=== PATIENT | male | born 1955 | race Caucasian/White ===

== ENCOUNTER 2017-06-07 12:44 | Emergency (ER) | payer OTHER ==
[2017-06-07 12:54] VITALS: BMI 39.0
[2017-06-07] MEDS ORDERED: DUONEB 0.5 MG/3 MG NEB ONE (13:22)
[2017-06-07 13:24] LABS: BASOPHILS # (AUTO) 0.1 X10^3/uL (0.0-0.1); BASOPHILS % (AUTO) 0.7 % (0.2-1.0); EOSINOPHILS # (AUTO) 0.4 x10^3/uL (0.0-0.2); EOSINOPHILS % (AUTO) 3.6 % (0.9-2.9); HEMATOCRIT 39.7 % (42.0-54.0); HEMOGLOBIN 13.5 g/dL (13.5-18.0); LYMPHOCYTES # (AUTO) 2.7 X10^3/uL (1.3-2.9); MEAN CORPUSCULAR HEMOGLOBIN 29.6 pg (27.0-34.0); MEAN CORPUSCULAR VOLUME 87.2 fL (80.0-100.0); MEAN PLATELET VOLUME 8.7 fL (7.4-11.0); MONOCYTES % (AUTO) 9.6 % (0.0-13.0); NEUTROPHILS # (AUTO) 6.5 x10^3/uL (2.2-4.8); NEUTROPHILS % (AUTO) 61.1 % (42.0-75.0); PLATELET COUNT 369 X10^3/uL (150.0-450.0); RED BLOOD COUNT 4.56 X10^6/uL (4.7-6.0); RED CELL DISTRIBUTION WIDTH 15.3 % (11.6-16.5); WHITE BLOOD COUNT 10.7 X10^3/uL (3.6-10.0)
[2017-06-07] MEDS ORDERED: DUONEB 0.5 MG/3 MG ONE (13:24)
--- NOTE | 2017-06-07 13:25 | DR.GENAD ---
HPI - PCP Primary Care Physician: LICO - Complaint/Symptoms Chief Complaint Doctors Comments: Patient reorts that he was at work started having tingling of hand and back of shoulders. He denies SOB, one pack per day cigarettes. No history of cardiopulmonary disease. He states that finished a course of antibiotics last week. Chief Complaint:: PATIENT STATED HE GOT WEAK AT WORK AND DIZZY AND HIS ARMS AND HANDS ARE TINGLING AND SHOULDER PAIN - Source History Provided: Patient - Mode of Arrival Mode of Arrival: Ambulatory - Timing Onset of Chief Complaint: 06/07/17 PMH - PMH Past Medical History: Yes Past Medical History: Arthritis, Hypertension Past Surgical History: No Surgical History: Tonsillectomy - Family History History of Family Medical Conditions: No - Social History Does patient currently use any type of tobacco product: Yes Have you used tobacco products in the last 12 months: Yes Type of Tobacco Use: Cigarettes How many years tobacco product used: 40 Does any household member use tobacco: Yes Alcohol Use: None Do you use any recreational Drugs:: No Lives With: Family Lives Where: Home - infectious screening In the last 2 months have you had wt loss of >10#?: NO Have you had fever, night sweats or hemotysis?: No Have you traveled outside the country in the last 6 months?: No Isolation: Standard ROS - Review of Systems Eyes: No Symptoms Reported ENTM: No Symptoms Reported Respiratoy: Dry Cough Cardiovascular: No Symptoms Reported Gastrointestinal/Abdominal: No Symptoms Reported Genitourinary: No Symptoms Reported Neurological: No Symptoms Reported Musculoskeletal: No Symptoms Reported Integumentary: No Symptoms Reported Hematologic/Lymphatic: No Symptoms Reported Endocrine: No Symptoms Reported Psychiatric: No Symptoms Reported All Other Systems: Reviewed and Negative PE - Vital Signs Vitals: Temperature 98.7 F Pulse Rate 86 Respiratory Rate 16 Blood Pressure 185/80 O2 Sat by Pulse Oximetry 100 - General Limitations: No Limitations General Appearance: Alert, In No Apparent Distress - Head Head Exam: Normal Inspection, Atraumatic - Eyes Eye exam: Normal Appearance, PERRL, EOMI, Scleral Icterus - ENT ENT Exam: Normal Exam External Ear Exam: Normal External Inspection TM/Canal Exam: Bilateral Normal Nose Exam: Normal Nose Exam Mouth Exam: Normal Inspection Throat Exam: Normal Inspection - Neck Neck Exam: Normal Inspection, Full ROM - Chest Chest Inspection: Normal Inspection - Respiratory Respiratory Exam: Other (bilateral expiratory wheeze) Respiratory Exam: Bilateral Clear to Auscultation - Cardiovascular Cardiovascular Exam: Regular Rate, Normal Rhythm - Extremities Extremities Exam: Normal Inspection, Full ROM - Back Back Exam: Normal Inspection - Neurologic Neurological Exam: Alert, Oriented X3, CN II-XII Intact - Psychiatric Psychiatric Exam: Normal Affect - Skin Skin Exam: Warm, Dry, Intact Course - Reevaluation 1st: Improved ROR - Labs Reviewed Laboratory Results Reviewed?: Yes (cardiacs negative) Result Diagrams: 06/07/17 13:15 06/07/17 13:15 Laboratory: WBC 10.7 X10^3/uL (3.6-10.0) H 06/07/17 13:15 RBC 4.56 X10^6/uL (4.7-6.0) L 06/07/17 13:15 Hgb 13.5 g/dL (13.5-18.0) 06/07/17 13:15 Hct 39.7 % (42.0-54.0) L 06/07/17 13:15 MCV 87.2 fL (80.0-100.0) 06/07/17 13:15 MCH 29.6 pg (27.0-34.0) 06/07/17 13:15 MCHC 34.0 g/dL (33.0-35.0) 06/07/17 13:15 RDW 15.3 % (11.6-16.5) 06/07/17 13:15 Plt Count 369 X10^3/uL (150.0-450.0) 06/07/17 13:15 MPV 8.7 fL (7.4-11.0) 06/07/17 13:15 Neut % 61.1 % (42.0-75.0) 06/07/17 13:15 Lymph % 25.0 % (21.0-51.0) 06/07/17 13:15 [place] % 9.6 % (0.0-13.0) 06/07/17 13:15 Eos % 3.6 % (0.9-2.9) H 06/07/17 13:15 Baso % 0.7 % (0.2-1.0) 06/07/17 13:15 Neut # 6.5 x10^3/uL (2.2-4.8) H 06/07/17 13:15 Lymph # 2.7 X10^3/uL (1.3-2.9) 06/07/17 13:15 [place] # 1.0 x10^3/uL (0.3-0.8) H 06/07/17 13:15 Eos # 0.4 x10^3/uL (0.0-0.2) H 06/07/17 13:15 Baso # 0.1 X10^3/uL (0.0-0.1) 06/07/17 13:15 Absolute Nucleated RBC 0.0 /100WBC 06/07/17 13:15 INR Target Range - 06/07/17 13:15 INR 1.26 (0.8-1.3) 06/07/17 13:15 PTT 28.9 SECONDS (22.9-36.5) 06/07/17 13:15 PTT Comment - 06/07/17 13:15 Sodium 140 mmol/L (136-145) 06/07/17 13:15 Corrected Sodium 141 mmol/L (136-145) 06/07/17 13:15 Potassium 3.9 mmol/L (3.5-5.1) 06/07/17 13:15 Chloride 104 mmol/L (98-107) 06/07/17 13:15 Carbon Dioxide 25.4 mmol/L (21-32) 06/07/17 13:15 BUN 30 mg/dL (7-18) H 06/07/17 13:15 Creatinine 2.48 mg/dL (0.70-1.30) H 06/07/17 13:15 Est GFR (MDRD) Af Amer 34 (>60) L 06/07/17 13:15 Est GFR (MDRD) Non-Af 28 (>60) L 06/07/17 13:15 Glucose 128 mg/dL (65-99) H 06/07/17 13:15 Calcium 8.5 mg/dL (8.5-10.1) 06/07/17 13:15 Corrected Calcium TNP 06/07/17 13:15 Magnesium 2.4 mg/dL (1.7-2.9) 06/07/17 13:15 Total Bilirubin 0.60 mg/dL (0.2-1.0) 06/07/17 13:15 AST 20 Units/L (15-37) 06/07/17 13:15 ALT 17 Units/L (12-78) 06/07/17 13:15 Alkaline Phosphatase 84 Units/L (46-116) 06/07/17 13:15 Creatine Kinase 137 Units/L (39-308) 06/07/17 13:15 CK-MB (CK-2) 1.2 ng/mL (0-4.0) 06/07/17 13:15 CK/CKMB % Calc 0.9 % (<4) 06/07/17 13:15 Troponin I < 0.02 ng/mL (0-1.5) 06/07/17 13:15 Total Protein 6.8 g/dL (6.4-8.2) 06/07/17 13:15 Albumin 3.4 g/dL (3.4-5.0) 06/07/17 13:15 Globulin 3.4 g/dL (2.5-4.5) 06/07/17 13:15 Albumin/Globulin Ratio 1.0 Ratio (1.1-2.1) L 06/07/17 13:15 - XRAY XRAY Interpreted by: Radiologist (Cervical Spine: ....There is multilevel sondylosis and degenerative disc disease as well as facet arthropathy throughout the cervical sine. The visualized odontoid process appears intact. No evidence of acute fracture or subluxation. The visuazlized lung apices appear clear.) - Diagnosis Discharge Problem: Multileved cervical DJD, Non-cardiac chest pain, Prerenal azotemia COPD (chronic obstructive pulmonary disease) Qualifiers: COPD type: unspecified COPD Qualified Code(s): J44.9 - Chronic obstructive pulmonary disease, unspecified - Discharge Plan Condition: Stable - Follow ups/Referrals Follow ups/Referrals: KARLENE BARFIELD [Primary Care Provider] - 3 days - Instructions
[2017-06-07 13:38] LABS: ALANINE AMINOTRANSFERASE 17 Units/L (12-78); ALBUMIN 3.4 g/dL (3.4-5.0); ALKALINE PHOSPHATASE 84 Units/L (46-116); ASPARTATE AMINO TRANSFERASE 20 Units/L (15-37); BLOOD UREA NITROGEN 30 mg/dL (7-18); CALCIUM 8.5 mg/dL (8.5-10.1); CARBON DIOXIDE 25.4 mmol/L (21-32); CHLORIDE 104 mmol/L (98-107); COR NA(FOR HYPERGLY) 141 mmol/L (136-145); CREATININE 2.48 mg/dL (0.70-1.30); MAGNESIUM 2.4 mg/dL (1.7-2.9); SODIUM 140 mmol/L (136-145); TOTAL PROTEIN 6.8 g/dL (6.4-8.2); eGFR BLACK RACES 34 (>60); eGFR NON BLACK RACES 28 (>60)
--- NOTE | 2017-06-07 13:40 | RAD ---
HISTORY: 61-year-old male with numbness and tingling in his hand. Study: Frontal view of the chest. Comparison: None. Findings: Study is limited secondary to patient body habitus and extensive quantum mottle. The trachea is midline. The cardiac silhouette is borderline enlarged with prominent perihilar lung markings and interstitium. The lungs are clear without focal consolidation, effusion or pneumothorax . Soft tissues are unremarkable. Osseous structures are unremarkable. IMPRESSION: 1. Borderline cardiomegaly with prominence of the interstitium and perihilar lung markings, consiste nt with COPD. Reported By:
[2017-06-07 13:55] LABS: CKMB % 0.9 % (<4); CREATINE KINASE 137 Units/L (39-308); CREATINE KINASE MB 1.2 ng/mL (0-4.0); TROPONIN I < 0.02 ng/mL (0-1.5)
[2017-06-07] MEDS ORDERED: NS 1000 ML 1,000 ML IV ONE (14:10)
[2017-06-07] MEDS ORDERED: NS 1000 ML 1,000 ML ONE (14:25)
[2017-06-07] MEDS ORDERED: K-DUR TAB 20 MEQ PO ONE (15:37)
--- NOTE | 2017-06-07 16:08 | RAD ---
HISTORY: Bilateral upper extremity tingling Study: Three-view cervical spine Comparison: None Findings: Normal cervical alignment. C7 is not well seen on the lateral view. Vertebral body heights appear pre served. Prevertebral soft tissues are normal. There is multilevel spondylosis and degenerative disc d isease as well as facet arthropathy throughout the cervical spine. The visualized odontoid process ap pears intact. No evidence of acute fracture or subluxation. The visualized lung apices appear clear. IMPRESSION: 1. Multilevel cervical degenerative changes. Reported By:
[2017-06-07 16:50] VITALS: BP 106/71
== END 2017-06-07 16:44 | disposition home or self-care (01) ==
LOC: ER 12:44
DX: J44.9 Chronic obstructive pulmonary disease, unspecified (principal); R07.89 Other chest pain; R79.89 Other specified abnormal findings of blood chemistry; M50.30 Other cervical disc degeneration, unspecified cervical region; I51.7 Cardiomegaly; Z72.0 Tobacco use
CPT/HCPCS: 36415; 71010; 72040; 80053; 82550; 82553; 83735; 84484; 85025; 85610; 85730; 93005; 93010; 96365; 96367; 99283; A4216; A4222; J7620

== ENCOUNTER 2017-06-16 10:50 | Observation (INO) | payer OTHER ==
[2017-06-16] MEDS ORDERED: ZOFRAN INJ 4 MG VIAL ONE ×2 (11:08→13:28)
[2017-06-16] MEDS ORDERED: NS 1000 ML 1,000 ML ONE (11:08)
[2017-06-16] MEDS ORDERED: NS 1000 ML 1,000 ML IV ONE (11:19)
[2017-06-16] MEDS ORDERED: ZOFRAN INJ 4 MG VIAL IVP ONE ×2 (11:19→13:28)
--- NOTE | 2017-06-16 11:30 | DR.N/VMALE ---
HPI - Time Seen Time seen: 11:20 - Primary Care Physician Primary Care Physician: LICO - HPI Comment HPI Comment: PAIN WORSE TODAY. HAVE GALL STONES. NO FEVER. NOT HOLDING DOWN FLUID. - Complaints Chief Complaint Doctors Comments: UPPER ABDOMINAL PAIN TIME 3 DAYS WITH N/V. Chief Complaint:: PT. C/O NAUSEA/VOMITING AND ABDOMINAL PAIN SINCE SATURDAY. PT. STATES HE IS UNABLE TO KEEP ANYTHING DOWN. - Reviewed Nurses Notes Reviewed: Yes - Source History Provided: Patient, Family Member - Mode of Arrival Mode of Arrival: Ambulatory - Timing Onset of Chief Complaint: 06/14/17 - Context Onset: Spontaneous Recent: None History of: None - Quality Quality: Bilious - Associated Signs and Symptoms Abdominal Pain Quality: Cramping, Sharp Abdominal Pain Location: Epigastric, RUQ, LUQ Symptoms: Abdominal Pain PMH - PMH Past Medical History: Yes Past Medical History: Arthritis, Hypertension Past Surgical History: Yes Surgical History: Tonsillectomy - Family History History of Family Medical Conditions: No - Social History Does patient currently use any type of tobacco product: Yes Have you used tobacco products in the last 12 months: Yes Type of Tobacco Use: Cigarettes Does any household member use tobacco: No Alcohol Use: None Do you use any recreational Drugs:: No Lives With: Significant Other Lives Where: Home - infectious screening In the last 2 months have you had wt loss of >10#?: NO Have you had fever, night sweats or hemotysis?: No Have you traveled outside the country in the last 6 months?: No Isolation: Standard ROS - Review of Systems Constitutional: Weakness, Fatigue, Loss of Appetite. negative: Chills, Diaphoresis, Fever Eyes: No Symptoms Reported ENTM: No Symptoms Reported Respiratoy: No Symptoms Reported Cardiovascular: No Symptoms Reported Gastrointestinal/Abdominal: Abdominal Pain, Diarrhea Neurological: Anxiety Musculoskeletal: No Symptoms Reported Integumentary: No Symptoms Reported, Change in Hair/Nails Psychiatric: No Symptoms Reported All Other Systems: Reviewed and Negative PE - Vital Signs Vitals: Blood Pressure [Left Arm] 188/86 Blood Pressure [Right Arm] 106/71 Blood Pressure 106/71 - General Limitations: No Limitations General Appearance: Alert - Head Head Exam: Normal Inspection - Eyes Eye exam: Normal Appearance - ENT ENT Exam: Normal External Ear Exam - Chest Chest Inspection: Symmetric Chest Wall Rise - Respiratory Respiratory Exam: Normal Lung Sounds Bilat Respiratory Exam: Bilateral Clear to Auscultation - Cardiovascular Cardiovascular Exam: Regular Rate, Normal Rhythm, Irregular Rhythm - Abdominal Exam Abdominal Exam: Normal Bowel Sounds, Soft, Distention Abdominal Tenderness: RUQ, LUQ, Epigastrium - Rectal Rectal Exam: Deferred - Exam: Male: Deferred - Extremities Extremities Exam: Normal Inspection - Back Back Exam: Paraspinal Tenderness - Neurologic Neurological Exam: Alert, Oriented X3 - Psychiatric Psychiatric Exam: Normal Affect, Normal Mood - Skin Skin Exam: Normal Color MDM - Additional Information Obtained Additional Information Obtained From: Family - Differential Diagnosis Differential Diagnosis: Considerations may Include:: Bowel Obstruction, Cholecystitis, Gastritis, Gastroenteritis, Inflammatory BD, Pancreatitis, Urinary Tract Infection, Urolithiasis Course - Treatment Treatment: SEE ORDERS - Consultation Consultation Comments: DISCUSS PATIENT WITH DR. OVIEDO. HE WILL ADMIT PATIENT. - Education/Counseling Education/Counseling: Patient, Education Educated On: Treatment, Diagnosis ROR - Labs Reviewed Laboratory Results Reviewed?: Yes Result Diagrams: 06/17/17 03:35 06/17/17 03:35 Laboratory: WBC 16.8 X10^3/uL (3.6-10.0) H 06/16/17 11:30 RBC 5.32 X10^6/uL (4.7-6.0) 06/16/17 11:30 Hgb 15.9 g/dL (13.5-18.0) 06/16/17 11:30 Hct 46.1 % (42.0-54.0) 06/16/17 11:30 MCV 86.7 fL (80.0-100.0) 06/16/17 11:30 MCH 29.8 pg (27.0-34.0) 06/16/17 11:30 MCHC 34.4 g/dL (33.0-35.0) 06/16/17 11:30 RDW 15.3 % (11.6-16.5) 06/16/17 11:30 Plt Count 370 X10^3/uL (150.0-450.0) 06/16/17 11:30 MPV 9.9 fL (7.4-11.0) 06/16/17 11:30 Neut % 77.4 % (42.0-75.0) H 06/16/17 11:30 Lymph % 10.7 % (21.0-51.0) L 06/16/17 11:30 [place] % 10.5 % (0.0-13.0) 06/16/17 11:30 Eos % 0.5 % (0.9-2.9) L 06/16/17 11:30 Baso % 0.9 % (0.2-1.0) 06/16/17 11:30 Neut # 13.0 x10^3/uL (2.2-4.8) H 06/16/17 11:30 Lymph # 1.8 X10^3/uL (1.3-2.9) 06/16/17 11:30 [place] # 1.8 x10^3/uL (0.3-0.8) H 06/16/17 11:30 Eos # 0.1 x10^3/uL (0.0-0.2) 06/16/17 11:30 Baso # 0.1 X10^3/uL (0.0-0.1) 06/16/17 11:30 Absolute Nucleated RBC 0.0 /100WBC 06/16/17 11:30 Sodium 133 mmol/L (136-145) L 06/16/17 11:30 Corrected Sodium 133 mmol/L (136-145) L 06/16/17 11:30 Potassium 4.2 mmol/L (3.5-5.1) 06/16/17 11:30 Chloride 100 mmol/L (98-107) 06/16/17 11:30 Carbon Dioxide 27.6 mmol/L (21-32) 06/16/17 11:30 BUN 16 mg/dL (7-18) 06/16/17 11:30 Creatinine 1.71 mg/dL (0.70-1.30) H 06/16/17 11:30 Est GFR (MDRD) Af Amer 52 (>60) L 06/16/17 11:30 Est GFR (MDRD) Non-Af 43 (>60) L 06/16/17 11:30 Glucose 111 mg/dL (65-99) H 06/16/17 11:30 Calcium 8.8 mg/dL (8.5-10.1) 06/16/17 11:30 Corrected Calcium 9.5 mg/dL (8.5-10.1) 06/16/17 11:30 Total Bilirubin 0.50 mg/dL (0.2-1.0) 06/16/17 11:30 AST 18 Units/L (15-37) 06/16/17 11:30 ALT 19 Units/L (12-78) 06/16/17 11:30 Alkaline Phosphatase 80 Units/L (46-116) 06/16/17 11:30 Creatine Kinase 47 Units/L (39-308) 06/16/17 11:30 CK-MB (CK-2) < 1.0 ng/mL (0-4.0) 06/16/17 11:30 CK/CKMB % Calc 2.1 % (<4) 06/16/17 11:30 Troponin I < 0.02 ng/mL (0-1.5) 06/16/17 11:30 Total Protein 6.9 g/dL (6.4-8.2) 06/16/17 11:30 Albumin 3.1 g/dL (3.4-5.0) L 06/16/17 11:30 Globulin 3.8 g/dL (2.5-4.5) 06/16/17 11:30 Albumin/Globulin Ratio 0.8 Ratio (1.1-2.1) L 06/16/17 11:30 Amylase 27 Units/L (25-115) 06/16/17 11:30 Lipase 199 Units/L (73-393) 06/16/17 11:30 Specimen Type Clean catch urine 06/16/17 13:07 Urine Color Yellow (YELLOW) 06/16/17 13:07 Urine Appearance Cloudy (CLEAR) 06/16/17 13:07 Urine pH 5.0 (5.0 - 8.0) 06/16/17 13:07 Ur Specific [place] 1.020 (1.000-1.030) 06/16/17 13:07 Urine Protein 2+ (NEGATIVE) 06/16/17 13:07 Urine Glucose (UA) Negative (NEGATIVE) 06/16/17 13:07 Urine Ketones 1+ (NEGATIVE) 06/16/17 13:07 Urine Occult Blood 3+ (NEGATIVE) 06/16/17 13:07 Urine Nitrite Positive (NEGATIVE) 06/16/17 13:07 Urine Bilirubin Negative (NEGATIVE) 06/16/17 13:07 Urine Urobilinogen Normal (NORMAL) 06/16/17 13:07 Ur Leukocyte Esterase 3+ (NEGATIVE) 06/16/17 13:07 Urine RBC 01 - 04 /HPF (NEGATIVE) 06/16/17 13:07 Urine WBC Tntc with clumps /HPF (NEGATIVE) 06/16/17 13:07 Ur Squamous Epith Cells Rare /HPF (NEGATIVE) 06/16/17 13:07 Amorphous Sediment Trace /HPF (NEGATIVE) 06/16/17 13:07 Urine Bacteria 4+ /HPF (NEGATIVE) 06/16/17 13:07 Hyaline Casts Rare /LPF (NEGATIVE) 06/16/17 13:07 Ur Culture Indicated? Yes/culture set up 06/16/17 13:07 H. pylori IgG Antibody Positive (NEGATIVE) A 06/16/17 11:30 - XRAY XRAY Findings: REPORT DISCUSS WITH PATIENT AND HIS . - EKG Rhythm: NSR (EKG NOTED) - Diagnosis Discharge Problem: Abdominal pain Qualifiers: Abdominal location: upper abdomen, unspecified Qualified Code(s): R10.10 - Upper abdominal pain, unspecified Cholelithiasis Qualifiers: Cholelithiasis location: gallbladder Cholecystitis presence: without cholecystitis Biliary obstruction: without biliary obstruction Qualified Code(s) : K80.20 - Calculus of gallbladder without cholecystitis without obstruction UTI (urinary tract infection) Qualifiers: Urinary tract infection type: site unspecified Hematuria presence: without hematuria Qualified Code(s): N39.0 - Urinary tract infection, site not specified - Discharge Plan Disposition: ADMITTED INPATIENT Condition: Stable - Follow ups/Referrals - Instructions
[2017-06-16] MEDS ORDERED: PEPCID 20 MG IV PREMIX* 20 MG/50 ML BAG IV ONE ×2 (11:31→11:33)
[2017-06-16] MEDS ORDERED: DEMEROL INJ IVP ONE ×2 (11:31→13:47)
[2017-06-16] MEDS ORDERED: DEMEROL INJ ONE ×2 (11:34→13:49)
[2017-06-16 11:46] LABS: BASOPHILS # (AUTO) 0.1 X10^3/uL (0.0-0.1); BASOPHILS % (AUTO) 0.9 % (0.2-1.0); EOSINOPHILS # (AUTO) 0.1 x10^3/uL (0.0-0.2); EOSINOPHILS % (AUTO) 0.5 % (0.9-2.9); HEMATOCRIT 46.1 % (42.0-54.0); HEMOGLOBIN 15.9 g/dL (13.5-18.0); LYMPHOCYTES # (AUTO) 1.8 X10^3/uL (1.3-2.9); LYMPHOCYTES % (AUTO) 10.7 % (21.0-51.0); MEAN CORPUSCULAR HEMOGLOBIN 29.8 pg (27.0-34.0); MEAN CORPUSCULAR HGB CONC 34.4 g/dL (33.0-35.0); MEAN CORPUSCULAR VOLUME 86.7 fL (80.0-100.0); MEAN PLATELET VOLUME 9.9 fL (7.4-11.0); MONOCYTES # (AUTO) 1.8 x10^3/uL (0.3-0.8); MONOCYTES % (AUTO) 10.5 % (0.0-13.0); NEUTROPHILS % (AUTO) 77.4 % (42.0-75.0); PLATELET COUNT 370 X10^3/uL (150.0-450.0); RED BLOOD COUNT 5.32 X10^6/uL (4.7-6.0); RED CELL DISTRIBUTION WIDTH 15.3 % (11.6-16.5); WHITE BLOOD COUNT 16.8 X10^3/uL (3.6-10.0)
[2017-06-16 12:24] LABS: BLOOD UREA NITROGEN 16 mg/dL (7-18); CALCIUM 8.8 mg/dL (8.5-10.1); CARBON DIOXIDE 27.6 mmol/L (21-32); CHLORIDE 100 mmol/L (98-107); COR NA(FOR HYPERGLY) 133 mmol/L (136-145); CREATININE 1.71 mg/dL (0.70-1.30); SODIUM 133 mmol/L (136-145); TROPONIN I < 0.02 ng/mL (0-1.5); eGFR BLACK RACES 52 (>60); eGFR NON BLACK RACES 43 (>60)
--- NOTE | 2017-06-16 12:26 | CT ---
CT ABDOMEN AND PELVIS WITHOUT CONTRAST CLINICAL HISTORY: 61-year-old male with nausea, vomiting and abdominal pain. COMPARISON: None. TECHNIQUE: Multiple contiguous computed tomographic axial images of the abdomen and pelvis were obtai guido without the use of oral or intravenous contrast. Images were reformatted in the coronal and sagit bill planes. FINDINGS: The lung bases demonstrate no evidence of focal air-space opacification, pleural effusion, pneumothor ax, or suspicious pulmonary nodules. The imaged inferior mediastinum and heart are normal in appeara nce without evidence of pericardial effusion. The liver, pancreas, and spleen are within normal limits for noncontrast imaging. Cholelithiasis with out CT evidence of cholecystitis. The adrenal glands and kidneys are normal bilaterally. There are no nephroureteral stones or perineph natasha fluid collections. There is no evidence of hydroureteronephrosis and the ureters run in an unobst ructed course to a well distended urinary bladder. The prostate, seminal vesicles, and external genitalia are within normal limits. The appendix is normal in appearance. The bowel is without obstruction or inflammation and there is no free fluid or free air within the peritoneal cavity. There are no pathologically enlarged lymph n odes in the abdomen or pelvis. Severe calcific atherosclerotic disease of the aorta and its branches. Soft tissues are normal. The osseous structures are intact without fracture or malalignment. Multilevel degenerative change of the imaged spine. IMPRESSION: 1. Cholelithiasis without CT evidence of cholecystitis. 2. Normal appendix. 3. No acute intra-abdominal or intrapelvic process. Reported By:
[2017-06-16 12:28] LABS: ALANINE AMINOTRANSFERASE 19 Units/L (12-78); ALBUMIN 3.1 g/dL (3.4-5.0); ALKALINE PHOSPHATASE 80 Units/L (46-116); AMYLASE 27 Units/L (25-115); ASPARTATE AMINO TRANSFERASE 18 Units/L (15-37); COR CA(FOR HYPOALB) 9.5 mg/dL (8.5-10.1); CREATINE KINASE 47 Units/L (39-308); CREATINE KINASE MB < 1.0 ng/mL (0-4.0); LIPASE 199 Units/L (73-393); TOTAL PROTEIN 6.9 g/dL (6.4-8.2)
[2017-06-16 12:33] LABS: CKMB % 2.1 % (<4)
[2017-06-16 13:18] LABS: BILIRUBIN,URINE NEGATIVE (NEGATIVE); BLOOD/HEMOGLOBIN,URINE 3+ (NEGATIVE); GLUCOSE, URINE NEGATIVE (NEGATIVE); KETONES,URINE 1+ (NEGATIVE); LEUKOCYTE ESTERASE ,URINE 3+ (NEGATIVE); NITRITES,URINE POSITIVE (NEGATIVE); PROTEIN,URINE 2+ (NEGATIVE); UROBILINOGEN,URINE NORMAL (NORMAL)
[2017-06-16 13:36] LABS: APPEARANCE,URINE CLOUDY (CLEAR); COLOR,URINE YELLOW (YELLOW)
[2017-06-16 13:41] LABS: AMORPHOUS SEDIMENT,UR TRACE /HPF (NEGATIVE); BACTERIA,URINE 4+ /HPF (NEGATIVE); HYALINE CASTS, URINE RARE /LPF (NEGATIVE); SQUAMOUS EPITHELIAL CELL,UR RARE /HPF (NEGATIVE)
[2017-06-16] MEDS ORDERED: ROCEPHIN VIAL 1 GM 1 GM in NS 50 ML IV + SPIKE MINIBAG* 50 ML IV ONE (13:47)
[2017-06-16] MEDS ORDERED: ROCEPHIN 1 GM IV PREMIX 50 ML IV ONE (13:49)
[2017-06-16] MEDS: NS 1000 ML 1,000 ML IV SCH ×2 (13:56→21:00)
[2017-06-16] MEDS ORDERED: ZOFRAN INJ 4 MG VIAL IVP PRN (14:57)
[2017-06-16] MEDS ORDERED: TYLENOL 325 MG TAB PO PRN (14:57)
[2017-06-16 16:22] VITALS: BMI 37.5
[2017-06-16] MEDS ORDERED: FLUVIRIN IM ONE ×2 (16:22→21:14)
--- NOTE | 2017-06-16 16:47 | DR.CONSULT ---
Consult - Consultation for Day of: Date: 06/16/17 - Chief Complaint Chief Complaint: Nausea and vomiting x 2 days. - Allergies Allergies/Adverse Reactions: Allergies Allergy/AdvReac Type Severity Reaction Status Date / Time promethazine [From Phenergan] Allergy Verified 06/16/17 10:53 - History of Present Illness History of Present Illness: The luh is a 61 year old male who presented to the ER with persistent nausea and vomiting x 48 hrs. The patient was able to tolerate liquids but reports symptoms re-occur after PO intake. (-) f/c. (-) diarrhea. (-) sick contacts. Mild constipation but BM today. He denies any abdominal pain but admits to dyspepsia. Work-up in the ER deomnstrates (+) UA with leukocytosis. (+) H.pylori. CT shows cholelithiasis without evidence of cholecystitis. The patient was taking an extended prednisone pack but has not for several days due to N/V. The patient denies dysuria but admits to increased frequency. No know prostate problems. - Past Medical History Past Medical History: Arthritis, Hypertension - Past Surgical History Surgical History: Tonsillectomy - Family History Family Medical History: Diabetes Mellitus, Cancer, Hypertension - Social History Does patient currently use any type of tobacco product: Yes Have you used tobacco products in the last 12 months: Yes Type of Tobacco Use: Cigarettes Does any household member use tobacco: No Alcohol Use: None Drug Use: None - Review of Systems Constitutional: No Symptoms Reported Eyes: No Symptoms Reported ENT: No Symptoms Reported Respiratory: No Symptoms Reported Cardiovascular: No Symptoms Reported Gastrointestinal: Nausea, Vomiting Genitourinary: Frequency Musculoskeletal: No Symptoms Reported Skin: No Symptoms Reported Neurological: No Symptoms Reported - Physical Exam Vital Signs: Temperature 98.7 F Pulse Rate [Left Brachial] 66 Pulse Rate 80 Respiratory Rate 18 Blood Pressure [Left Arm] 139/83 Blood Pressure [Right Arm] 106/71 Blood Pressure 200/102 O2 Sat by Pulse Oximetry 98 Oriented: Normal Eyes: Normal Ear: Normal Respiratory: Clear Throughout Cardiovascular: Normal Auscultation: Bowel Sounds: Normal Palpation: Normal Tenderness: Normal, Other ((-) Encinas's sign.) Skin: Normal Musculoskeletal: Normal Psychiatric: Normal Mood Description: Calm Affect: Normal Speech Pattern: Clear - Plan Plan: 61 year old male with N/V/dyspepsia. 1. UTI. Likely source of symptoms. Abx. started by primary team. Await cultures. 2. Cholelithiasis. Difficult to tell if symptomatic at this time due to UTI. The patient denies RUQ pain or N/V after meals or fatty food intake. CT reviewed. Ultrasound pending. On exam, NTTP RUQ. Monitor. 3. H.pylori. Currently on PPI. Recent steroid use. Previously on NSAIDs. No epigastric pain. Continue meds. Elective treatment as outpatient.
[2017-06-16] MEDS: PROTONIX INJ 40 MG VIAL 80 MG in NS 100 ML IV 80 ML IV SCH (17:32)
[2017-06-16] MEDS: NICOTINE PATCH TD SCH (19:29)
[2017-06-16] MEDS: MORPHINE SULFATE INJ 2 MG INJ IVP PRN (21:55)
[2017-06-16] MEDS: REQUIP PO SCH (23:46)
[2017-06-17] MEDS: PROTONIX INJ 40 MG VIAL 80 MG in NS 100 ML IV 80 ML IV SCH ×2 (03:30→10:05)
[2017-06-17] MEDS: NS 1000 ML 1,000 ML IV SCH ×4 (04:28→18:25)
[2017-06-17 04:40] LABS: BASOPHILS # (AUTO) 0.1 X10^3/uL (0.0-0.1); BASOPHILS % (AUTO) 0.8 % (0.2-1.0); EOSINOPHILS # (AUTO) 0.2 x10^3/uL (0.0-0.2); EOSINOPHILS % (AUTO) 1.7 % (0.9-2.9); HEMATOCRIT 39.5 % (42.0-54.0); HEMOGLOBIN 13.3 g/dL (13.5-18.0); LYMPHOCYTES # (AUTO) 2.6 X10^3/uL (1.3-2.9); LYMPHOCYTES % (AUTO) 17.7 % (21.0-51.0); MEAN CORPUSCULAR HEMOGLOBIN 29.2 pg (27.0-34.0); MEAN CORPUSCULAR HGB CONC 33.6 g/dL (33.0-35.0); MEAN CORPUSCULAR VOLUME 86.8 fL (80.0-100.0); MEAN PLATELET VOLUME 9.2 fL (7.4-11.0); MONOCYTES # (AUTO) 1.8 x10^3/uL (0.3-0.8); MONOCYTES % (AUTO) 12.4 % (0.0-13.0); NEUTROPHILS % (AUTO) 67.4 % (42.0-75.0); PLATELET COUNT 303 X10^3/uL (150.0-450.0); RED BLOOD COUNT 4.55 X10^6/uL (4.7-6.0); RED CELL DISTRIBUTION WIDTH 15.2 % (11.6-16.5); WHITE BLOOD COUNT 14.8 X10^3/uL (3.6-10.0)
[2017-06-17 04:58] LABS: ALBUMIN 2.6 g/dL (3.4-5.0); ALKALINE PHOSPHATASE 66 Units/L (46-116); AMYLASE 22 Units/L (25-115); ASPARTATE AMINO TRANSFERASE 14 Units/L (15-37); BLOOD UREA NITROGEN 13 mg/dL (7-18); CALCIUM 7.9 mg/dL (8.5-10.1); CARBON DIOXIDE 25.5 mmol/L (21-32); CHLORIDE 105 mmol/L (98-107); CREATININE 1.62 mg/dL (0.70-1.30); LIPASE 178 Units/L (73-393); SODIUM 139 mmol/L (136-145); TOTAL PROTEIN 5.7 g/dL (6.4-8.2); eGFR BLACK RACES 56 (>60); eGFR NON BLACK RACES 46 (>60)
[2017-06-17 05:07] LABS: ALANINE AMINOTRANSFERASE 15 Units/L (12-78)
[2017-06-17] MEDS ORDERED: MAGNESIUM SULFATE 1 GM/100 mL PREMIX 1 GM/100 ML BAG IV PRN (08:45)
[2017-06-17] MEDS ORDERED: MAG-OX TAB PO PRN (08:45)
[2017-06-17] MEDS ORDERED: K-LYTE EFFERVESCENT PO PRN (08:45)
[2017-06-17] MEDS ORDERED: K-RIDER 10 MEQ/NS 100 ML 10 MEQ/100 ML BAG IV PRN (08:45)
[2017-06-17] MEDS: NICOTINE PATCH TD SCH (09:20)
[2017-06-17] MEDS: ROCEPHIN VIAL 1 GM 1 GM in NS 100 ML IV + SPIKE MINIBAG* 100 ML IV SCH (09:30)
[2017-06-17] MEDS: FLONASE NASAL SPRAY ENOSTRIL SCH (10:16)
[2017-06-17] MEDS: MORPHINE SULFATE INJ 2 MG INJ IVP PRN ×2 (11:30→17:16)
[2017-06-17] MEDS: LEVSIN/MAALOX/LIDOC VISC PO SCH ×4 (11:36→21:12)
[2017-06-17] MEDS: PEPCID 20 MG IV PREMIX* 20 MG/50 ML BAG IV SCH ×2 (11:37→21:15)
--- NOTE | 2017-06-17 14:28 | US ---
History: Pain Exam: Gallbladder ultrasound Comparison: None Technique: Multiple grayscale and color flow Doppler images of the gallbladder were obtained. Findings: The liver measures 18 cm along the midclavicular line and is normal in echogenicity. There is hepatop etal flow in the portal vein and visualized hepatic veins and IVC are unremarkable. The gallbladder i s normal size with multiple echogenic foci in the gallbladder which are shadowing posteriorly. The ga llbladder wall measures up to 4.7 mm with no wall edema or pericholecystic fluid. The common duct frantz sures 6.8 mm. The right kidney measures 11 cm in length and is normal in echogenicity. No hydronephro sis or renal stone is seen and the visualized pancreas is unremarkable. IMPRESSION: Multiple small gallstones with associated mild gallbladder wall thickening. Suggest a follow-up HIDA scan, if there is clinical concern for associated cholecystitis. Mild hepatomegaly and a mildly dilated common hepatic duct. Reported By:
[2017-06-17] MEDS: TORADOL 30 MG VIAL IVP PRN (15:13)
[2017-06-17] MEDS: REQUIP PO SCH (21:12)
[2017-06-18] MEDS: NS 1000 ML 1,000 ML IV SCH (02:50)
[2017-06-18] MEDS: TORADOL 30 MG VIAL IVP PRN ×2 (04:25→10:46)
[2017-06-18] MEDS: PROTONIX INJ 40 MG VIAL 80 MG in NS 100 ML IV 80 ML IV SCH ×2 (05:26→05:27)
[2017-06-18 06:56] LABS: BASOPHILS # (AUTO) 0.2 X10^3/uL (0.0-0.1); BASOPHILS % (AUTO) 1.1 % (0.2-1.0); EOSINOPHILS # (AUTO) 0.2 x10^3/uL (0.0-0.2); EOSINOPHILS % (AUTO) 1.7 % (0.9-2.9); HEMATOCRIT 38.4 % (42.0-54.0); LYMPHOCYTES # (AUTO) 1.6 X10^3/uL (1.3-2.9); LYMPHOCYTES % (AUTO) 10.5 % (21.0-51.0); MEAN CORPUSCULAR HEMOGLOBIN 29.5 pg (27.0-34.0); MEAN CORPUSCULAR HGB CONC 33.9 g/dL (33.0-35.0); MEAN CORPUSCULAR VOLUME 87.1 fL (80.0-100.0); MEAN PLATELET VOLUME 10.2 fL (7.4-11.0); MONOCYTES # (AUTO) 2.3 x10^3/uL (0.3-0.8); MONOCYTES % (AUTO) 15.1 % (0.0-13.0); NEUTROPHILS # (AUTO) 10.7 x10^3/uL (2.2-4.8); NEUTROPHILS % (AUTO) 71.6 % (42.0-75.0); PLATELET COUNT 289 X10^3/uL (150.0-450.0); RED BLOOD COUNT 4.41 X10^6/uL (4.7-6.0); RED CELL DISTRIBUTION WIDTH 15.1 % (11.6-16.5); WHITE BLOOD COUNT 14.9 X10^3/uL (3.6-10.0)
[2017-06-18 07:09] LABS: ALANINE AMINOTRANSFERASE 11 Units/L (12-78); ALBUMIN 2.4 g/dL (3.4-5.0); ALKALINE PHOSPHATASE 67 Units/L (46-116); ASPARTATE AMINO TRANSFERASE 14 Units/L (15-37); BLOOD UREA NITROGEN 12 mg/dL (7-18); CARBON DIOXIDE 23.7 mmol/L (21-32); CHLORIDE 106 mmol/L (98-107); COR CA(FOR HYPOALB) 9.3 mg/dL (8.5-10.1); CREATININE 1.56 mg/dL (0.70-1.30); MAGNESIUM 1.7 mg/dL (1.7-2.9); SODIUM 137 mmol/L (136-145); TOTAL PROTEIN 5.8 g/dL (6.4-8.2); eGFR BLACK RACES 58 (>60); eGFR NON BLACK RACES 48 (>60)
[2017-06-18] MEDS: NICOTINE PATCH TD SCH (08:58)
[2017-06-18] MEDS: ROCEPHIN VIAL 1 GM 1 GM in NS 100 ML IV + SPIKE MINIBAG* 100 ML IV SCH (08:58)
[2017-06-18] MEDS: LEVSIN/MAALOX/LIDOC VISC PO SCH ×2 (08:59→13:54)
[2017-06-18] MEDS: FLONASE NASAL SPRAY ENOSTRIL SCH (08:59)
--- NOTE | 2017-06-18 09:06 | DR.CONSULT ---
Consult - Consultation for Day of: Date: 06/17/17 - Chief Complaint Chief Complaint: Nausea, Vomiting, diffuse abdominal tenderness - Allergies Allergies/Adverse Reactions: Allergies Allergy/AdvReac Type Severity Reaction Status Date / Time promethazine [From Phenergan] Allergy Verified 06/16/17 10:53 - History of Present Illness History of Present Illness: Patient is a 61yo male who was referred for Abdominal pPain, Gall stones and H-Pylori Antibody Positive. Patient complains of nasuea that has improved and vomiting that lasted about 3 days and abdominal soreness/tenderness from vomiting. abdominal CT showed cholithiasis and gall bladder sonogram showed cholelithiasis as well. Patient denies dysphagia, dyspepsia, diarrhea, abdominal pain, melena, hemaochezia and constiaption. Patient has never had a colonoscopy and did have an EGD but it was a long time ago. - Past Medical History Past Medical History: Arthritis, Gout, Hypertension - Past Surgical History Surgical History: Tonsillectomy - Family History Family Medical History: Diabetes Mellitus, Cancer (father with leukemia), Hypertension - Social History Does patient currently use any type of tobacco product: Yes Have you used tobacco products in the last 12 months: Yes Type of Tobacco Use: Cigarettes Does any household member use tobacco: No Alcohol Use: None Drug Use: None - Review of Systems Constitutional: No Symptoms Reported Eyes: No Symptoms Reported ENT: No Symptoms Reported Respiratory: No Symptoms Reported Cardiovascular: No Symptoms Reported Gastrointestinal: See HPI, Nausea, Vomiting. denies: Abdominal Pain, Diarrhea, Constipation, Melena, Hematochezia Genitourinary: No Symptoms Reported Musculoskeletal: No Symptoms Reported Skin: No Symptoms Reported Neurological: No Symptoms Reported - Physical Exam Vital Signs: Temperature 97.9 F Pulse Rate [Right Brachial] 82 Pulse Rate [Left Brachial] 76 Pulse Rate 80 Respiratory Rate 20 Blood Pressure [Left Arm] 134/82 Blood Pressure [Right Arm] 129/83 Blood Pressure 200/102 O2 Sat by Pulse Oximetry 97 Oriented: Normal Eyes: Normal Ear: Normal Nose: Normal Throat: Normal Respiratory: Clear Throughout Cardiovascular: Normal : Normal Auscultation: Bowel Sounds: Normal Palpation: Normal, Other (no distention). negative: Spleen Enlarged, Liver Enlarged, Mass Pulsatile Tenderness: Normal Skin: Normal Musculoskeletal: Normal Psychiatric: Normal Mood Description: Calm Affect: Normal Speech Pattern: Clear - Plan Plan: Assessment. 1. Nausea/Vomiting likely secondary to UTI. 2. Asymptomatic cholelithiasis. Plan. 1. H-Pylori Stool Antigen, Protonix 40mg PO BID, Zofran as needed. 2. Monitor, may need surgical intervention
[2017-06-18] MEDS: PEPCID 20 MG IV PREMIX* 20 MG/50 ML BAG IV SCH (10:22)
[2017-06-18] MEDS ORDERED: NS 500 ML IV 500 ML IV ONE (10:53)
[2017-06-18] MEDS ORDERED: LEVAQUIN PREMIX IV 500 MG 500 MG/100 ML BAG IV SCH (11:00)
[2017-06-18] MEDS ORDERED: COLCRYS TAB 0.6 MG PO SCH (11:00)
[2017-06-18] MEDS ORDERED: HYDROCHLOROTHIAZIDE PO SCH (13:15)
[2017-06-18] MEDS ORDERED: [UNRECOGNIZED DRUG - OTHER] PO SCH (13:15)
[2017-06-18] MEDS ORDERED: BISOPROL PO SCH (13:15)
[2017-06-18] MEDS ORDERED: ZEBETA TAB 5 MG PO SCH (14:00)
[2017-06-18] MEDS ORDERED: NORVASC TAB 10 MG PO SCH (14:00)
[2017-06-18] MEDS ORDERED: HYDROCHLOROTHIAZIDE 25 MG TAB PO SCH (14:00)
[2017-06-18] MEDS ORDERED: NORCO 5/325 MG TAB PO PRN (15:37)
--- NOTE | 2017-06-18 16:19 | DR.H&P ---
H&P - History & Physical for Day of: H&P Date: 06/16/17 - Chief Complaint Chief Complaint: abdominal pain - Allergies Allergies/Adverse Reactions: Allergies Allergy/AdvReac Type Severity Reaction Status Date / Time promethazine [From Phenergan] Allergy Verified 06/16/17 10:53 - History of Present Illness History of Present Illness: Mr. Bo is a 61 year old patient of who presented to the emergency room with reports of abdominal pain that began three days prior to coming to the ER. Patient reports pain is located to upper abdomen with associated nausea and vomiting. On examination, lungs were clear to auscultation. Abdomen is distended. Patient was noted with epigastric tenderness on palpation of the abdomen. Normal bowel sounds noted in all quadrants. On arrival, his vital signs were 98.0-80-20-100% RA, 200/102. Labs and CT were obtained. Abnormal lab values include the following: WBC 16.8, Sodium 133, Creatinine 1.71, GFR af 52, GFR non 43, Glucose 111, Albumin 3.1, A/ G Ratio 0.8, Hpylori Positive. Urinalysis: Cloudy, Protein 2+, Ketones 1+, Occult Blood 3+, Nitrite Positive, Leuk Est 3+, RBC 1-4, WBC Tntc w/clumps, Bacteria 4+, Hyaline Casts Rare, Culture Pending. EKG reporte: Sinus Rhythm. Rate=77. Abdomen/Pelvis CT reported: Cholelithiasis without CT evidence of cholcystitis. Normal appendix. No acute intra-abdominal or intrapelvic process. We admitted patient for further treatment and evaluation. He was started on a protonix drip, Morphin 4mg iv q4h prn pain, Zofran 4mg iv q6h prn nausea and Normal Saline at 125ml/hr, and Rocephin 1gm IV daily for UTI. We will order a gallbladder US, repeat AM labs, and consult Gastroenterology and General Surgery. We will continue to monitor patient. - Past Medical History Past Medical History: Arthritis, COPD, Diabetes, Dyslipidemia, Gout, Hypertension - Past Surgical History Surgical History: Tonsillectomy - Family History Family Medical History: Diabetes Mellitus, Cancer (father with leukemia), Hypertension - Social History Does patient currently use any type of tobacco product: Yes Have you used tobacco products in the last 12 months: Yes Type of Tobacco Use: Cigarettes Does any household member use tobacco: No Alcohol Use: None Drug Use: None - Review of Systems Constitutional: Weakness, Other (fatigue, loss of appetite) Eyes: No Symptoms Reported. denies: Vision Change ENT: No Symptoms Reported. denies: Ear Discharge, Nose Discharge Respiratory: No Symptoms Reported. denies: Shortness of Breath, Sputum, Wheezing Cardiovascular: No Symptoms Reported. denies: Chest Pain Gastrointestinal: Nausea, Vomiting, Abdominal Pain, Diarrhea. denies: Melena, Hematochezia Genitourinary: Dysuria. denies: Retention Musculoskeletal: No Symptoms Reported, Back Pain Skin: No Symptoms Reported. denies: Jaundice, Wound, Ecchymosis Neurological: No Symptoms Reported, Weakness - Physical Exam Vital Signs: Temperature 97.6 F Pulse Rate [Right Brachial] 77 Pulse Rate [Left Brachial] 76 Pulse Rate 80 Respiratory Rate 20 Blood Pressure [Left Arm] 134/82 Blood Pressure [Right Arm] 179/90 Blood Pressure 200/102 O2 Sat by Pulse Oximetry 99 Oriented: Normal Eyes: Normal. negative: Blurred Vision, Diplopia, Discharge, Photophobia Ear: Normal. negative: Abrasion, Laceration Nose: Normal Throat: Normal Respiratory: Clear Throughout Cardiovascular: Normal. negative: Murmur, Edema : Normal Auscultation: Bowel Sounds: Normal Palpation: Normal Tenderness: Diffuse, Epigastric. negative: Rebound, Guarding, Rigidity Skin: Normal. negative: Wound, Bruising, Ecchymosis Musculoskeletal: Normal Psychiatric: Anxiety Mood Description: Calm Affect: Normal Speech Pattern: Clear - Assessment/Plan (1) Abdominal pain Qualifiers: Abdominal location: upper abdomen, unspecified Qualified Code(s): R10.10 - Upper abdominal pain, unspecified Status: Acute Plan: morphine 4mg iv q4h prn pain, zofran 4mg iv q6h prn nausea, continue to monitor (2) Cholelithiasis Qualifiers: Cholelithiasis location: gallbladder Cholecystitis presence: without cholecystitis Biliary obstruction: without biliary obstruction Qualified Code(s): K80.20 - Calculus of gallbladder without cholecystitis without obstruction Status: Acute Plan: morphine 4mg iv q4h prn pain, zofran 4mg iv q6h prn nausea, continue to monitor, surgical consult (3) UTI (urinary tract infection) Qualifiers: Urinary tract infection type: site unspecified Hematuria presence: without hematuria Qualified Code(s): N39.0 - Urinary tract infection, site not specified Status: Acute Plan: normal saline at 125ml/hr, Rocephin 1gm iv daily, continue to monitor
[2017-06-18 16:38] VITALS: BP 140/88
[2017-06-18] MEDS ORDERED: PROTONIX TAB 40 MG PO SCH (21:00)
== END 2017-06-18 16:10 | disposition home or self-care (01) ==
LOC: ER 10:58 → MED/SURG 14:35
PROVIDERS: ADMIT Internal Medicine; ATTEND Internal Medicine
PROC: 3E0234Z Introduction of Serum, Toxoid and Vaccine into Muscle, Percutaneous Approach (ICD-10-PCS; principal; 2017-06-16)
DX: N39.0 Urinary tract infection, site not specified (principal); R10.84 Generalized abdominal pain; K80.20 Calculus of gallbladder without cholecystitis without obstruction; B96.29 Other Escherichia coli [E. coli] as the cause of diseases classified elsewhere; R10.10 Upper abdominal pain, unspecified; B96.81 Helicobacter pylori [H. pylori] as the cause of diseases classified elsewhere; J44.9 Chronic obstructive pulmonary disease, unspecified; E78.2 Mixed hyperlipidemia; I10 Essential (primary) hypertension; D72.828 Other elevated white blood cell count; E87.1 Hypo-osmolality and hyponatremia; Z23 Encounter for immunization
CPT/HCPCS: 36415; 74176; 76705; 80053; 81001; 82150; 82550; 82553; 83690; 83735; 84132; 84484; 85025; 86677; 87086; 87088; 87186; 90686; 93005; 96365; 96367; 96374; 96375; 99284; A4222; C9113; S0028; G0378; J0696; J1885; J1956; J2175; J2270; J2405

== ENCOUNTER 2017-07-05 07:24 | Day surgery (SDC) | payer OTHER ==
[2017-07-05] MEDS ORDERED: LR 1000 ML IV 0 ML IV ONE (07:44)
[2017-07-05] MEDS ORDERED: ANCEF VIAL 1 GM ONE ×2 (07:45→07:46)
[2017-07-05] MEDS ORDERED: NS 100 ML IV 100 ML IV ONE (07:45)
[2017-07-05] MEDS ORDERED: NS 1000 ML 1,000 ML ONE (07:46)
[2017-07-05 08:29] LABS: BASOPHILS # (AUTO) 0.2 X10^3/uL (0.0-0.1); BASOPHILS % (AUTO) 2.4 % (0.2-1.0); EOSINOPHILS # (AUTO) 0.2 x10^3/uL (0.0-0.2); EOSINOPHILS % (AUTO) 2.1 % (0.9-2.9); HEMATOCRIT 46.1 % (42.0-54.0); HEMOGLOBIN 15.8 g/dL (13.5-18.0); LYMPHOCYTES # (AUTO) 1.8 X10^3/uL (1.3-2.9); LYMPHOCYTES % (AUTO) 19.5 % (21.0-51.0); MEAN CORPUSCULAR HEMOGLOBIN 29.1 pg (27.0-34.0); MEAN CORPUSCULAR HGB CONC 34.2 g/dL (33.0-35.0); MEAN CORPUSCULAR VOLUME 85.2 fL (80.0-100.0); MEAN PLATELET VOLUME 8.8 fL (7.4-11.0); MONOCYTES % (AUTO) 10.7 % (0.0-13.0); NEUTROPHILS # (AUTO) 6.2 x10^3/uL (2.2-4.8); NEUTROPHILS % (AUTO) 65.3 % (42.0-75.0); PLATELET COUNT 390 X10^3/uL (150.0-450.0); RED BLOOD COUNT 5.41 X10^6/uL (4.7-6.0); RED CELL DISTRIBUTION WIDTH 14.7 % (11.6-16.5); WHITE BLOOD COUNT 9.4 X10^3/uL (3.6-10.0)
[2017-07-05 08:36] LABS: ALANINE AMINOTRANSFERASE 28 Units/L (12-78); ALBUMIN 3.5 g/dL (3.4-5.0); ALKALINE PHOSPHATASE 107 Units/L (46-116); ASPARTATE AMINO TRANSFERASE 25 Units/L (15-37); BLOOD UREA NITROGEN 19 mg/dL (7-18); CALCIUM 9.2 mg/dL (8.5-10.1); CARBON DIOXIDE 30.1 mmol/L (21-32); CHLORIDE 101 mmol/L (98-107); CREATININE 1.95 mg/dL (0.70-1.30); SODIUM 138 mmol/L (136-145); TOTAL PROTEIN 7.4 g/dL (6.4-8.2); eGFR BLACK RACES 45 (>60); eGFR NON BLACK RACES 37 (>60)
[2017-07-05] MEDS ORDERED: DUONEB 0.5 MG/3 MG NEB ONE (08:46)
[2017-07-05] MEDS ORDERED: FENTANYL INJ 250 mcg ONE (10:22)
[2017-07-05] MEDS ORDERED: DILAUDID INJ ONE ×2 (10:22→13:03)
[2017-07-05] MEDS ORDERED: MARCAINE 0.25% INJ ONE (11:17)
[2017-07-05] MEDS ORDERED: XYLOCAINE 1% and EPINEPHRINE 1:100,000 ONE (11:17)
[2017-07-05] MEDS ORDERED: PHENERGAN INJ 25 MG IVP PRN (12:29)
[2017-07-05] MEDS ORDERED: BENADRYL INJ 50 MG VIAL IVP PRN (12:29)
[2017-07-05] MEDS ORDERED: DILAUDID INJ IVP PRN (12:29)
[2017-07-05] MEDS ORDERED: REGLAN INJ 10 MG VIAL IVP PRN (12:29)
[2017-07-05] MEDS ORDERED: ZOFRAN INJ 4 MG VIAL IVP PRN (12:29)
--- NOTE | 2017-07-05 12:31 | OR.GENERIC ---
Post-Op Note Generic - Post-Op Note Operative Report: Date of Operation: July 05, 2017 Pre-Operative Diagnosis: Biliary dyskinesia. Post-Operative Diagnosis: 1. Mild chronic cholecystitis. 2. Biliary dyskinesia. 3. Small bowel diverticulum. Procedure: Laparoscopic cholecystectomy. Surgeon: Ari Devi MD. Business Applications Developer: Daniella Pandya CRNA. Specimen: Gallbladder. Estimated blood loss: Minimal. Complications: None. Summary: The patient is a 61 year old male who presented with biliary dyskinesia. The patient was offered cholecystectomy. The risk and benefits of the procedure including difficulty with anesthesia, bleeding, infection, conversion to open procedure, bile leak, hernia formation, DVT, as well as PE were discussed with the patient. The patient understood these risks and requested the procedure. On July 05, 2017, the patient was brought to the operative theatre. A time out was performed verifying the patient and procedure. The patient received Ancef for pre-operative antibiosis. After satisfactory induction of general endotracheal anesthesia, the abdomen was prepped with Chloraprep and draped in the usual sterile fashion. The skin and subcutaneous tissue inferior to the umbilicus was anesthetized using local anesthetic. The skin was incised sharply. A 12 mm trocar was placed though the incision and into the peritoneal cavity using the Julienne technique. Carbon dioxide was infiltrated through this trocar to obtain a pneumoperitoneum of 15 mm Hg. A camera was placed through this trocar and swept in all directions. No injury was seen from entering the peritoneal cavity. A small bowl diverticulum was noted. A site was selected in the subxiphoid location for our 2nd trocar. The skin and fascia was anesthetized using local anesthetic. The skin was incised sharply. A 5 mm trocar was placed into the peritoneal cavity under direct visualization. In a similar manner, two additional 5 mm trocars were placed. The first was placed in the mid-clavicular line approximately 2 fingerbreadths inferior to the left costal margin and a second in the anterior axillary line approximately 2 fingerbreadths inferior to the left costal margin. The patient was placed in reverse Trendelenburg and rotated to the patients left. The gallbladder was grasped at the fundus and elevated cephalad and slightly lateral. The peritoneum on the medial and lateral aspects of the infundibulum of the gallbladder was scored using hook electrocautery. Using blunt dissection, the cystic artery and duct were isolated. The critical view of safety was obtained. Both of these structures were divided between endoclips. The gallbladder was dissected free using hook electrocautery. The gallbladder was placed in an endobag and removed through the umbilical trocar site without difficulty. The trocar and camera were placed back inside the abdomen. Our clips were noted in good position. Bleeding of the gallbladder fossa was controlled using electrocautery. At this point, the 5 mm trocars were removed under direct visualization. No bleeding was seen. The umbilical trocar was then removed and pneumoperitoneum released. The fascia at the umbilicus was closed using a 0-Vicryl placed in a [id number] configuration x 2. The skin edges at all incisions were re-approximated using inverted, interrupted 4- 0 Monocryl sutures. Mastisol and Steri-strips were placed. Sterile dressings were placed. The patient was awakened and taken to the recovery room in stable condition. There were no complications. All counts were correct.
[2017-07-05] MEDS ORDERED: NS 500 ML IV 500 ML IV ONE (13:08)
[2017-07-05 14:36] VITALS: BP 122/85
[2017-07-05] MEDS ORDERED: EPHEDRINE SULFATE INJ ONE (15:51)
[2017-07-05] MEDS ORDERED: ROBINUL ONE (15:51)
[2017-07-05] MEDS ORDERED: VERSED ONE (15:51)
[2017-07-05] MEDS ORDERED: ULTANE GAS IN ONE (15:51)
[2017-07-05] MEDS ORDERED: TORADOL 30 MG VIAL ONE (15:51)
[2017-07-05] MEDS ORDERED: ZOFRAN INJ 4 MG VIAL ONE (15:51)
[2017-07-05] MEDS ORDERED: QUELICIN (OR ANECTINE) ONE (15:51)
[2017-07-05] MEDS ORDERED: DIPRIVAN VIAL ONE (15:51)
[2017-07-05] MEDS ORDERED: NEOSTIGMINE INJ ONE (15:51)
[2017-07-05] MEDS ORDERED: NORCURON INJ 10 MG VIAL ONE (15:51)
== END 2017-07-05 14:26 | disposition home or self-care (01) | DRG 418 ==
LOC: SURG1 07:24
PROVIDERS: ATTEND Student in an Organized Health Care Education/Training Program
PROC: 0FT44ZZ Resection of Gallbladder, Percutaneous Endoscopic Approach (ICD-10-PCS; principal; 2017-07-05 11:15)
DX: K81.9 Cholecystitis, unspecified (principal); K57.00 Diverticulitis of small intestine with perforation and abscess without bleeding; K82.8 Other specified diseases of gallbladder
CPT/HCPCS: 36415; 80053; 85025; 94640; A4216; A4222; S0020; J0330; J0690; J1170; J1885; J2001; J2250; J2405; J2710; J3010; J3490; J7120; J7620

== ENCOUNTER → 2017-07-29 | Outpatient (CLI) | payer OTHER ==
[2017-07-05 14:36] VITALS: BP 122/85
[2017-07-29 09:03] LABS: CREATININE 1.8 mg/dL (0.70-1.30)
--- NOTE | 2017-07-30 10:46 | CT ---
HISTORY: Lower abdominal pain and nausea/vomiting. Study: CT abdomen and pelvis without contrast Comparison: CT abdomen/pelvis dated June 16, 2017. Technique: Multiple axial images of the abdomen and pelvis were obtained from the lung bases to the pubic symphy sis without the administration of IV contrast. Dose reduction techniques including Automated Exposur e Control (AEC) and adjustment of mA and kV were utilized. Findings: Limited study secondary to lack of IV contrast. Bibasilar scarring versus atelectasis. Otherwise, the visualized portions of the lung bases are unrem arkable. The liver, spleen, pancreas, kidneys, and adrenal glands are unremarkable in their CT appea hector. The gallbladder is surgically absent. No significant mesenteric lymphadenopathy or stranding can be observed. No free fluid or free air is seen within the abdomen. The large and small bowel ar e unremarkable. The appendix appears normal. Punctate calcifications of the prostate gland that othe rwise is unremarkable. The urinary bladder is grossly unremarkable. Infrarenal saccular dilatation of the abdominal aorta measuring 3.9 x 3.0 cm in greatest dimension. This appears unchanged given techn ique. Other areas of vascular calcification without evidence of aneurysmal dilatation. Degenerative c hanges of the spine. No aggressive osseous lesions. IMPRESSION: 1. No CT evidence of acute abdominal/pelvic pathology. 2. 3.9 cm abdominal aortic aneurysm appears unchanged given technique. Recommend follow-up abdominal aortic ultrasound in 6-12 months to document stability. Reported By:
== END ==
LOC: RAD 08:23
PROVIDERS: ATTEND Nurse Practitioner
DX: K57.10 Diverticulosis of small intestine without perforation or abscess without bleeding (principal)
CPT/HCPCS: 36415; 74176; 82565; 84520

== ENCOUNTER 2023-10-07 23:03 | Inpatient (IN) ==
--- NOTE | 2023-10-07 23:25 | DR.AMS ---
HPI Time Seen Time Seen by Provider: 10/07/23 23:25 PCP Primary Care Physician: kaur HPI Comment HPI Comment: Altered mental status x 3 days. Complaint Cheif Complaint Doctors Comments: Patient is 68-year-old male in the emergency room with altered mental status for 3 days. Patient have generalized weakness. He have not being able to do his usual activities for the past few days. He is not wanting to eat. He have history of COPD, arthritis, dyslipidemia, hypertension and gout. Patient is currently not on any medication for his chronic medical problems. He has no primary care physician currently. Patient denies chest pain, nausea, vomiting, diarrhea or dysuria. EMS was called to patient's residence today and when EMS arrived blood pressure was low. EMS gave patient one Liter of normal saline IV bolus during transportation. Blood pressure improved with this treatment. Chief Complaint:: EMS states pt was brought in because family states he has been altered for the past 3 days. EMS states he was hypotensive 80s so they gave him a liter bolus in route and it came up to 110s. Self Treatment fo Chief Complaint: 1 liter bolus COVID-19 Coronavirus risk:travel/contact w/high risk person: No Has patient experienced Coronavirus symptoms: No Reviewed Nurses Notes Reviewed: Yes Source History Provided: Patient Mode of Arrival Mode of Arrival: Ambulatory Timing Onset of Chief Complaint: 10/04/23 PMH PMH Past Medical History: Yes Past Medical History: Arthritis, COPD, Diabetes, Dyslipidemia, Gout and Hypertension Past Surgical History: Yes Surgical History: Cholecystectomy and Tonsillectomy Family History History of Family Medical Conditions: Yes Family Medical History: Diabetes Mellitus, Cancer and Hypertension Social History Alcohol Use: None Do you use any recreational Drugs:: No Lives With: Alone Lives Where: Home Travel Risk Coronavirus risk:travel/contact w/high risk person: No Has patient experienced Coronavirus symptoms: No Infectious screening In the last 2 months have you had wt loss of >10#?: NO Have you had fever, night sweats or hemotysis?: No Have you traveled outside the country in the last 6 months?: No Isolation: Standard ROS Review of Systems Constitutional: Weakness and Fatigue; negative Fever Eyes: No Symptoms Reported ENTM: negative Nose Discharge or Nose Congestion Respiratoy: negative Short of Breath or Wheezing Cardiovascular: Edema (Asymmetric swelling and edema of the lower extremities. Right greater than left.); negative Chest Pain Gastrointestinal/Abdominal: Abdominal Pain; negative Diarrhea or Vomiting Genitourinary: Other (Decreased urination.); negative Dysuria Neurological: Weakness Musculoskeletal: No Symptoms Reported Integumentary: Dryness and Juandice; negative Rash Hematologic/Lymphatic: negative Easy Bruising or Swollen Glands Endocrine: Increased Thirst and Decreased Appetite; negative Increased Urine Psychiatric: No Symptoms Reported All Other Systems: Reviewed and Negative PE Vitals Vital Signs: Temp Pulse Resp BP Pulse Ox 10/08/23 03:45 83 26 H 98 10/08/23 03:30 101/52 10/08/23 03:30 83 20 96 10/08/23 03:15 86 27 H 93 L 10/08/23 03:00 97/54 10/08/23 03:00 85 28 H 97 10/08/23 02:45 87 30 H 96 10/08/23 02:30 88 24 93 L 10/08/23 02:30 115/58 10/08/23 02:22 107/55 10/08/23 02:22 87 23 97 10/08/23 02:15 91 H 39 H 10/08/23 02:00 93 H 23 10/08/23 01:45 93 H 24 96 10/08/23 01:30 91 H 22 97 10/08/23 01:15 90 32 H 97 10/08/23 01:00 89 96 10/08/23 00:45 90 96 10/08/23 00:40 132 H 92 L 10/08/23 00:15 95 H 96 10/08/23 00:00 94 H 95 10/07/23 23:45 97 H 95 10/07/23 23:30 135 H 10/07/23 23:15 97 H 96 10/07/23 23:11 97 H 97 10/07/23 23:10 98 F 98 H 20 111/53 96 General Limitations: Altered Mental Status General Appearance: Alert; negative In No Apparent Distress Head Head Exam: Normal Inspection and Atraumatic Head Exam Physical: Other (NonE noted.) Eyes Eye exam: Normal Appearance; negative Scleral Icterus or Conjunctival Injection Pupils: Regular, Round: Bilateral and Reactive: Bilateral ENT ENT Exam: Normal Exam, Normal Oropharynx, Normal External Ear Exam and TM's N ormal Bilaterally External Ear Exam: Normal External Inspection; negative Mastoid Tenderness TM/Canal Exam: Bilateral: Normal Nose Exam: Normal Nose Exam Mouth Exam: Normal Inspection Throat Exam: Normal Inspection; negative Tonsillar Erythema, Tonsillomegaly or Tonsillar Exudate Neck Neck Exam: Normal Inspection and Trachea Midline; negative Tenderness Chest Chest Inspection: Normal Inspection and Symmetric Chest Wall Rise; negative Tenderness Respiratory Respiratory Exam: negative Normal Lung Sounds Bilat, Accessory Muscle Use, Chest Wall Tenderness or Respiratory Distress Respiratory Exam: Bilateral: Rhonchi Cardiovascular Cardiovascular Exam: Regular Rate, Normal Rhythm and Normal Heart Sounds; negative Systolic Murmur or Diastolic Murmur Abdominal Exam Abdominal Exam: Normal Inspection, Normal Bowel Sounds, Soft and Tenderness Abdominal Tenderness: Diffuse and Mild Extremities Extremities Exam: Edema (Asymmetric edema of the lower extremities, right greater than left.) and Other (Toes are discolored.) Neurological Neurological Exam: Alert; negative Oriented X3 or Motor Sensory Deficit Patient Oriented To: Person; negative Place or Time Speech: Other (Dysarthria.) Cranial Nerve Exam: Gag reflex (XI): Normal Upper Motor Neuron Exam: Babinski Sign: Normal Psychological Psychiatric Exam: Flat Affect Expanded Psychiatric Exam: Poor Eye Contact Skin Skin Exam: Warm; negative Rash MDM Differential Diagnosis Metabolic: Dehydration, Hypercalcemia, Hypernatremia, Hypoglycemia and Hyponatremia Structural: CVA and Mass Lesion Infectious: Sepsis and UTI Environmental: Hyperthermia and Hypothermia COURSE Treatment Treatment: See orders done while patient was in the emergency room. Labs EKG CT and chest x-ray discussed with patient and son. Patient's troponin, BNP and electrolytes abnormal. He also have pneumonia and UTI. Patient was given Rocephin 1 g IVPB in the in the emergency room. He was also given normal saline 1 L IV bolus during transport. Patient will be admitted to hospital for further management. Consultation Consultation Comments: Discussed patient with Dr. Hilliard. He will admit patient. Education/Counseling Education/Counseling: Patient and Family Educated On: Treatment and Diagnosis ROR Labs Reviewed Laboratory Results Reviewed?: Yes 10/09/23 04:00 10/09/23 07:07 Laboratory: 10/07/23 23:35 Urine,Catheterized Urine Culture - Final Escherichia Coli WBC 11.0 X10^3/uL (3.6-10.0) H 10/08/23 00:16 RBC 5.26 X10^6/uL (4.7-6.0) 10/08/23 00:16 Hgb 11.5 g/dL (13.5-18.0) L 10/08/23 00:16 Hct 38.0 % (42.0-54.0) L 10/08/23 00:16 MCV 72.2 fL (80.0-100.0) L 10/08/23 00:16 MCH 21.9 pg (27.0-34.0) L 10/08/23 00:16 MCHC 30.3 g/dL (33.0-35.0) L 10/08/23 00:16 RDW 20.6 % (11.6-16.5) H 10/08/23 00:16 Plt Count 118 X10^3/uL (150.0-450.0) L 10/08/23 00:16 Plt Count Comment Decreased (ADEQUATE) 10/08/23 00:16 MPV 9.3 fL (7.4-11.0) 10/08/23 00:16 Neut % (Auto) 90.2 % (42.0-75.0) H 10/08/23 00:16 Lymph % (Auto) 3.8 % (21.0-51.0) L 10/08/23 00:16 [place] % (Auto) 5.5 % (0.0-13.0) 10/08/23 00:16 Eos % (Auto) 0.1 % (0.9-2.9) L 10/08/23 00:16 Baso % (Auto) 0.4 % (0.2-1.0) 10/08/23 00:16 Neut # (Auto) 9.9 x10^3/uL (2.2-4.8) H 10/08/23 00:16 Lymph # (Auto) 0.4 X10^3/uL (1.3-2.9) L 10/08/23 00:16 [place] # (Auto) 0.6 x10^3/uL (0.3-0.8) 10/08/23 00:16 Eos # (Auto) 0.0 x10^3/uL (0.0-0.2) 10/08/23 00:16 Baso # (Auto) 0.0 X10^3/uL (0.0-0.1) 10/08/23 00:16 Absolute Nucleated RBC 0.7 /100WBC 10/08/23 00:16 Total Counted 100 10/08/23 00:16 Neutrophils % (Manual) 94 % (39-76) H 10/08/23 00:16 Lymphocytes % (Manual) 2 % (13-43) L 10/08/23 00:16 Monocytes % (Manual) 6 % (4-9) 10/08/23 00:16 Plt Morphology Comment Normal (NORMAL) 10/08/23 00:16 RBC Morphology Abnormal (NORMAL) 10/08/23 00:16 Hypochromasia 2+ A 10/08/23 00:16 Anisocytosis 1+ A 10/08/23 00:16 Microcytosis Slight A 10/08/23 00:16 Target Cells Present 10/08/23 00:16 Ovalocytes Present 10/08/23 00:16 [place] Cells Present 10/08/23 00:16 Acanthocytes (Spur) Present 10/08/23 00:16 Sodium 164 mmol/L (136-145) H* 10/08/23 00:16 Corrected Sodium 166 mmol/L (136-145) H 10/08/23 00:16 Potassium 3.1 mmol/L (3.5-5.1) L 10/08/23 00:16 Chloride 127 mmol/L (98-107) H* 10/08/23 00:16 Carbon Dioxide 23.7 mmol/L (21-32) 10/08/23 00:16 BUN 65 mg/dL (7-18) H 10/08/23 00:16 Creatinine 2.54 mg/dL (0.70-1.30) H 10/08/23 00:16 Est GFR (MDRD) Af Amer 32 (>60) L 10/08/23 00:16 Est GFR (MDRD) Non-Af 27 (>60) L 10/08/23 00:16 Glucose 174 mg/dL (65-99) H 10/08/23 00:16 Lactic Acid 1.9 mmol/L (0.4-2.0) 10/08/23 02:16 Calcium 8.1 mg/dL (8.5-10.1) L 10/08/23 00:16 Corrected Calcium 9.5 mg/dL (8.5-10.1) 10/08/23 00:16 Magnesium 2.3 mg/dL (2.0-2.9) 10/08/23 00:16 Total Bilirubin 5.30 mg/dL (0.2-1.0) H 10/08/23 00:16 AST 36 Units/L (15-37) 10/08/23 00:16 ALT 84 Units/L (12-78) H 10/08/23 00:16 Alkaline Phosphatase 91 Units/L (46-116) 10/08/23 00:16 Ammonia < 10 umol/L (11-32) L 10/08/23 00:16 Creatine Kinase 117 Units/L (39-308) 10/08/23 02:16 Troponin I High Sens 365.7 ng/L (4.0-60.0) H* 10/08/23 02:16 B-Natriuretic Peptide 3700 pg/mL (0-79) H 10/08/23 00:16 Total Protein 6.1 g/dL (6.4-8.2) L 10/08/23 00:16 Albumin 2.2 g/dL (3.4-5.0) L 10/08/23 00:16 Globulin 3.9 g/dL (2.5-4.5) 10/08/23 00:16 Albumin/Globulin Ratio 0.6 Ratio (1.1-2.1) L 10/08/23 00:16 Amylase 30 Units/L (25-115) 10/08/23 00:16 Specimen Type Catherized urine 10/07/23 23:35 Urine Color Dark yellow (YELLOW) 10/07/23 23:35 Urine Appearance Clear (CLEAR) 10/07/23 23:35 Urine pH 6.0 (5.0 - 8.0) 10/07/23 23:35 Ur Specific [place] 1.020 (1.000-1.030) 10/07/23 23:35 Urine Protein 2+ (NEGATIVE) 10/07/23 23:35 Urine Glucose (UA) Negative (NEGATIVE) 10/07/23 23:35 Urine Ketones Negative (NEGATIVE) 10/07/23 23:35 Urine Blood 1+ (NEGATIVE) 10/07/23 23:35 Urine Nitrite Negative (NEGATIVE) 10/07/23 23:35 Urine Bilirubin 2+ (NEGATIVE) 10/07/23 23:35 Urine Urobilinogen 3+ (NORMAL) 10/07/23 23:35 Ur Leukocyte Esterase 2+ (NEGATIVE) 10/07/23 23:35 Urine RBC 3-5 /HPF (0-3) A 10/07/23 23:35 Urine WBC 5-10 /HPF (0-5) A 10/07/23 23:35 Ur Squamous Epith Cells Rare /HPF (NEGATIVE) 10/07/23 23:35 Urine Bacteria 4+ /HPF (NEGATIVE) 10/07/23 23:35 Urine Mucus Rare /HPF (NEGATIVE) 10/07/23 23:35 Ur Culture Indicated? Yes/culture set up 10/07/23 23:35 SARS-CoV-2 (PCR) Negative (NEGATIVE) 10/08/23 00:30 Influenza Type A (PCR) Negative (NEGATIVE) 10/08/23 00:30 Influenza Type B (PCR) Negative (NEGATIVE) 10/08/23 00:30 RSV (PCR) Negative (NEGATIVE) 10/08/23 00:30 XRAY XRAY Interpreted by: Radiologist (Reports noted.) and Self EKG Rate: 93 Stanley: LAD Rhythm: NSR Block: 1 Hypertrophy: LVH (widening of QRS.) ST: Inf and Infarct (SEPTAL INFARCT, AGE UNDETTERMINED.) Opioid Opioid Risk Tool Age (Anjel box if 16-45): No History of Preadolescent Sexual Abuse: No Total: 0 Total Score Risk Category: Low Risk Copyright: Manny KNIGHT predicting aberrant behaviors Discharge Plan Diagnosis Discharge Problem: Acute dehydration, Acute hypernatremia, Acute renal insufficiency, Elevated troponin CHF (congestive heart failure) Qualifiers: Heart failure type: combined systolic and diastolic Heart failure chronicity: acute on chronic Qualified Code(s): I50.43 - Acute on chronic combined systolic (congestive) and diastolic (congestive) heart failure UTI (urinary tract infection) Qualifiers: Urinary tract infection type: site unspecified Hematuria presence: with hematuria Qualified Code(s): N39.0 - Urinary tract infection, site not specified Pneumonia Qualifiers: Pneumonia type: due to unspecified organism Laterality: bilateral Lung location: lower lobe of lung Qualified Code(s): J18.9 - Pneumonia, unspecified organism Discharge Plan Patient Disposition: 09 ADMITTED INPATIENT Condition: Stable
[2023-10-07 23:45] LABS: BILIRUBIN,URINE 2+ (NEGATIVE); BLOOD/HEMOGLOBIN,URINE 1+ (NEGATIVE); GLUCOSE, URINE NEGATIVE (NEGATIVE); KETONES,URINE NEGATIVE (NEGATIVE); LEUKOCYTE ESTERASE ,URINE 2+ (NEGATIVE); NITRITES,URINE NEGATIVE (NEGATIVE); PROTEIN,URINE 2+ (NEGATIVE); UROBILINOGEN,URINE 3+ (NORMAL)
[2023-10-07 23:55] LABS: APPEARANCE,URINE CLEAR (CLEAR); COLOR,URINE DARK YELLOW (YELLOW)
[2023-10-07 23:56] LABS: BACTERIA,URINE 4+ /HPF (NEGATIVE); SQUAMOUS EPITHELIAL CELL,UR RARE /HPF (NEGATIVE)
--- NOTE | 2023-10-08 00:14 | EKG ---
Test Reason : HTN Blood Pressure : */* mmHG Vent. Rate : 93 BPM Atrial Rate : 93 BPM P-R Int : 222 ms QRS Dur : 124 ms QT Int : 372 ms P-R-T Axes : 108 -41 101 degrees QTc Int : 462 ms Sinus rhythm with 1st degree AV block Left axis deviation Left ventricular hypertrophy with QRS widening and repolarization abnormality ( R in aVL , Siddhartha pr oduct ) Cannot rule out Septal infarct (cited on or before 17-JAN-2023) Abnormal ECG When compared with ECG of 17-JAN-2023 19:23, LA interval has increased ST elevation now present in Anterior leads ST no longer depressed in Lateral leads T wave inversion less evident in Lateral leads horrible baseline artifact Confirmed by Santo Carranza MD ([id number]) on 10/08/2023 7:35:51 AM Referred By: Confirmed By: Santo Carranza MD
[2023-10-08] MEDS ORDERED: ROCEPHIN VIAL 1 GRAM ONE (00:16)
[2023-10-08] MEDS ORDERED: NS 100 ML IV 100 ML ONE (00:19)
[2023-10-08] MEDS: NS 50 ML IV 0 ML IV ONE (00:21)
[2023-10-08 00:39] LABS: PLATELET COUNT 118 X10^3/uL (150.0-450.0)
[2023-10-08] MEDS: ROCEPHIN VIAL 1 GRAM 1 G in NS 100 ML IV 100 ML IV ONE (00:44)
[2023-10-08 00:45] LABS: AMMONIA < 10 umol/L (11-32); BASOPHILS % (AUTO) 0.4 % (0.2-1.0); EOSINOPHILS % (AUTO) 0.1 % (0.9-2.9); HEMOGLOBIN 11.5 g/dL (13.5-18.0); LYMPHOCYTES # (AUTO) 0.4 X10^3/uL (1.3-2.9); LYMPHOCYTES % (AUTO) 3.8 % (21.0-51.0); MEAN CORPUSCULAR HEMOGLOBIN 21.9 pg (27.0-34.0); MEAN CORPUSCULAR HGB CONC 30.3 g/dL (33.0-35.0); MEAN CORPUSCULAR VOLUME 72.2 fL (80.0-100.0); MEAN PLATELET VOLUME 9.3 fL (7.4-11.0); MONOCYTES # (AUTO) 0.6 x10^3/uL (0.3-0.8); MONOCYTES % (AUTO) 5.5 % (0.0-13.0); NEUTROPHILS # (AUTO) 9.9 x10^3/uL (2.2-4.8); NEUTROPHILS % (AUTO) 90.2 % (42.0-75.0); RED BLOOD COUNT 5.26 X10^6/uL (4.7-6.0); RED CELL DISTRIBUTION WIDTH 20.6 % (11.6-16.5)
[2023-10-08 01:00] LABS: ALBUMIN 2.2 g/dL (3.4-5.0); CALCIUM 8.1 mg/dL (8.5-10.1); CARBON DIOXIDE 23.7 mmol/L (21-32); COR CA(FOR HYPOALB) 9.5 mg/dL (8.5-10.1); CREATININE 2.54 mg/dL (0.70-1.30); POTASSIUM 3.1 mmol/L (3.5-5.1); TOTAL PROTEIN 6.1 g/dL (6.4-8.2)
[2023-10-08 01:07] LABS: PLATELET MORPHOLOGY COMMENT NORMAL (NORMAL)
--- NOTE | 2023-10-08 01:07 | RAD ---
EXAM: CHEST, 1 VIEW HISTORY: EMS states pt was brought in because family states he has been altered for the past 3 days. EMS state s he was hypotensive 80s so they gave him a liter bolus in route and it came up to 110s.; HTN, DM, CO PD, GOUT SX: MARIA ISABEL, TONSILS COMPARISON: None available. FINDINGS: The trachea is midline. The cardiac silhouette is mildly enlarged.. Patchy bibasilar infiltrates le [id number]. No pleural effusion or pneumothorax.. The bony thorax is unremarkable. IMPRESSION: Mild cardiomegaly Patchy bibasilar infiltrates [id number]. THIS IS AN ELECTRONICALLY VERIFIED FINAL REPORT 10/08/2023 1:04 AM - Electronically signed by Yannick Kimble MD
[2023-10-08 01:08] LABS: ANISOCYTOSIS 1+; BURR CELLS PRESENT; HYPOCHROMASIA 2+; MICROCYTOSIS SLIGHT; OVALOCYTES PRESENT; TARGET CELLS PRESENT
[2023-10-08 01:09] LABS: AMYLASE 30 Units/L (25-115)
--- NOTE | 2023-10-08 01:11 | CT ---
EXAM: BRAIN W/O CON HISTORY: EMS states pt was brought in because family states he has been altered for the past 3 days. EMS state s he was hypotensive 80s so they gave him a liter bolus in route and it came up to 110s.; HTN, DM, CO PD, GOUT SX: MARIA ISABEL, TONSILS COMPARISON: None TECHNIQUE: CT scan of the brain was obtained from skull base to vertex without contrast. Dose reduction techniqu es were utilized. Contrast: None FINDINGS: There are bilateral age-indeterminate, but possibly chronic subdural hygromas along the frontoparieta l convexities bilaterally. These do not cause midline shift due to the symmetric nature of the bilat eral hygromas. There is a focal chronic remote infarct of the right inferior cerebellar hemisphere. This is seen as focal chronic encephalomalacia and gliosis. There are lucencies noted to the right courtney and linear fashion. A focal area of lucency of the left anterior courtney is also seen suggestive o f chronic pontine infarcts. There is diffuse cerebral and cerebellar volume loss. There is minimal p atchy periventricular hypodensity in the hemispheric white matter. While these are nonspecific findin gs, this most likely represents microvascular ischemic disease changes. There is no evidence of intra cranial hemorrhage or mass-effect. No extra-axial fluid collections are identified. There are extensive atherosclerotic changes noted of the cavernous carotid arteriesand distal vertebr al arteries. Skull base and calvarium are intact. Paranasal sinuses are clear. IMPRESSION: Bilateral, age-indeterminate, frontoparietal subdural hygromas. Chronic infarcts of the courtney, right- [id number]. Diffuse generalized cerebral atrophy. Microvascular ischemic disease changes. THIS IS AN ELECTRONICALLY VERIFIED FINAL REPORT 10/08/2023 1:08 AM - Electronically signed by Chela Albright MD
--- NOTE | 2023-10-08 02:15 | EKG ---
Test Reason : AMS Blood Pressure : */* mmHG Vent. Rate : 89 BPM Atrial Rate : 89 BPM P-R Int : 172 ms QRS Dur : 130 ms QT Int : 380 ms P-R-T Axes : 12 -41 93 degrees QTc Int : 462 ms Sinus rhythm with occasional premature ventricular complexes Left axis deviation Left ventricular hypertrophy with QRS widening and repolarization abnormality ( R in aVL , Siddhartha pr oduct ) Cannot rule out Septal infarct (cited on or before 17-JAN-2023) Abnormal ECG When compared with ECG of 08-OCT-2023 00:12, (Unconfirmed) premature ventricular complexes are now present AL interval has decreased Confirmed by Roge Bustos ([id number]) on 10/08/2023 7:49:21 AM Referred By: Confirmed By: Roge Bustos
[2023-10-08] MEDS ORDERED: ZITHROMAX INJ 500 MG VIAL IV ONE (03:44)
[2023-10-08] MEDS ORDERED: NS 1/2 1,000 ML IV 1,000 ML IV ONE ×2 (03:45→13:32)
[2023-10-08] MEDS ORDERED: D5W 250 ML IV 250 ML IV ONE (03:45)
[2023-10-08] MEDS: ZITHROMAX INJ 500 MG VIAL 500 MG in NS 250 ML IV 250 ML IV ONE (03:58)
[2023-10-08] MEDS: ZITHROMAX INJ 500 MG VIAL 500 MG in D5W 250 ML IV 250 ML IV ONE (03:58)
[2023-10-08] MEDS: NS 1/2 1,000 ML IV 1,000 ML IV SCH ×2 (03:58→10:45)
[2023-10-08 05:07] VITALS: BMI 26.2
[2023-10-08 06:19] LABS: MAGNESIUM 2.4 mg/dL (2.0-2.9)
[2023-10-08 08:45] LABS: CHOL/HDL RATIO 4.8 (0.0-5.0); CHOLESTEROL 82 mg/dL (0-200); HDL CHOLESTEROL 17 mg/dL (40-60); TRIGLYCERIDES 108 mg/dL (0-150)
[2023-10-08] MEDS: DUONEB 0.5 MG/3 MG (3 mL) NEB SCH (08:53)
[2023-10-08 08:59] LABS: BLOOD ALCOHOL < 3 mg/dL (0-19.9)
[2023-10-08 09:30] LABS: ALBUMIN 1.9 g/dL (3.4-5.0); CALCIUM 7.6 mg/dL (8.5-10.1); CARBON DIOXIDE 25.2 mmol/L (21-32); COR CA(FOR HYPOALB) 9.3 mg/dL (8.5-10.1); CREATININE 2.37 mg/dL (0.70-1.30); POTASSIUM 3.7 mmol/L (3.5-5.1); TOTAL PROTEIN 5.6 g/dL (6.4-8.2)
[2023-10-08] MEDS: PLAVIX PO SCH (11:00)
[2023-10-08] MEDS: LOVENOX INJ 30 MG SYR SC SCH (11:00)
--- NOTE | 2023-10-08 14:19 | VAS ---
EXAM:LOWER EXT VENOUS, BILATERALHISTORY:EDEMA BILAT LE;COMPARISON:None.TECHNIQUE:Grayscale and color Doppler imaging of the bilateral lower extremities using compression and augmentation techniques.FINDINGS:There is evidence of complete DVT within the right popliteal vein and left peroneal vein associated with lack of intraluminal color Doppler flow, suboptimal augmentation and compressibility. Generalized subcutaneous edema is demonstrated within the right and left lower extremity.Otherwise, the remaining deep vascular segments of the right and left leg show normal color Doppler flow augmentation and compressibilityIMPRESSION:Complete DVT of the left peroneal vein and right popliteal vein.THIS IS AN ELECTRONICALLY VERIFIED FINAL REPORT10/08/2023 2:15 PM - Electronically signed by Javier Galvin MD
[2023-10-08] MEDS ORDERED: TYLENOL 325 MG TAB PO ONE (15:05)
[2023-10-08] MEDS: TYLENOL 325 MG TAB PO PRN (15:06)
[2023-10-08] MEDS: HEPARIN SODIUM IN D5W 25,000 UNITS/500 ML BAG IV PRN (15:32)
[2023-10-08] MEDS: HEPARIN SODIUM IN D5W 25,000 UNITS/500 ML BAG ONE (15:42)
[2023-10-08 16:32] LABS: ERYTHROCYTE SEDIMENTATION RATE 11 MM/HOUR (0-15)
[2023-10-08 16:34] LABS: INR 1.83 (0.8-1.3)
--- NOTE | 2023-10-08 16:42 | EKG ---
Test Reason : rhythm irregular Blood Pressure : */* mmHG Vent. Rate : 86 BPM Atrial Rate : * BPM P-R Int : * ms QRS Dur : 132 ms QT Int : 392 ms P-R-T Axes : * -39 110 degrees QTc Int : 469 ms sinus with frequent pacs Left axis deviation Left ventricular hypertrophy with QRS widening ( R in aVL , Siddhartha product ) T wave abnormality, consider lateral ischemia Abnormal ECG When compared with ECG of 08-OCT-2023 02:12, pacs are new Confirmed by Santo Carranza MD ([id number]) on 10/09/2023 8:09:15 AM Referred By: Confirmed By: Santo Carranza MD
--- NOTE | 2023-10-08 17:55 | DR.H&P ---
H&P History & Physical for Day of: H&P Date: 10/08/23 Chief Complaint Chief Complaint: AMS, WEAKNESS Allergies Allergies Allergy/AdvReac Type Severity Reaction Status Date / Time promethazine [From Phenergan] Allergy Verified 10/08/23 05:08 shrimp Allergy Verified 10/08/23 05:08 History of Present Illness History of Present Illness: PT IS 68 WM, ER ADMISSION WITH FAMILY REPORTING PT HAS DIFFUSE WEAKNESS, POOR PO INTAKE FOR SEVERAL DAYS. PT HAS CONFUSION, POOR HISTORIAN. CT HEAD IN ER ABNORMAL, INFARCT WITH AGE UNDETERMINED, SMALL VESSEL DISEASE. PT FAMILY STATES PT HAS NOT SEEN DR IN MONTHS, HAS NOT BEEN TAKING ANY PRESCRIPTION MEDICATION FOR SEVERAL MONTHS. PT WAS HYPOTENSIVE ON ARRIVAL WITH NA CRITICAL AT 164. PT ADMITTED TO ICU FOR EVALUATION AND TREATMENT OF ACUTE ILLNESS. Past Medical History Past Medical History: Arthritis, COPD, Diabetes, Dyslipidemia, Gout and Hypertension Past Surgical History Surgical History: Angioplasty/Stents, Cholecystectomy, Ortho Surgery and Tonsillectomy Family History Family Medical History: Diabetes Mellitus, Cancer and Hypertension Social History Does patient currently use any type of tobacco product: Yes Type of Tobacco Use: Cigarettes Does any household member use tobacco: No Alcohol Use: None Drug Use: None Medications Home Medications: Home Medications Medication Instructions Recorded Confirmed Type allopurinol 100 mg tablet 100 mg PO QAM gout pain 10/08/23 10/08/23 History atorvastatin 80 mg tablet 80 mg PO QPM 10/08/23 10/08/23 History carvedilol 6.25 mg tablet 6.25 mg PO BID 10/08/23 10/08/23 History citalopram 40 mg tablet 40 mg PO QPM 10/08/23 10/08/23 History clopidogrel 75 mg tablet 75 mg PO QDAY 10/08/23 10/08/23 History febuxostat 40 mg tablet 40 mg PO QDAY 10/08/23 10/08/23 History finasteride 5 mg tablet 5 mg PO QPM 10/08/23 10/08/23 History furosemide 20 mg tablet 20 mg PO QDAY 10/08/23 10/08/23 History furosemide 40 mg tablet 40 mg PO QDAY 10/08/23 10/08/23 History ondansetron HCl 4 mg tablet 4 mg PO Q8H PRN nausea/vomiting 10/08/23 10/08/23 History potassium chloride 20 mEq 20 meq PO QDAY 10/08/23 10/08/23 History tablet,extended release(part/cryst) tamsulosin 0.4 mg capsule 0.4 mg PO QDAY 10/08/23 10/08/23 History zolpidem 10 mg tablet 10 mg PO QPM insomnia 10/08/23 10/08/23 History Labs 10/08/23 15:24 10/08/23 09:06 Labs: 10/07/23 23:35 Urine,Catheterized Urine Culture - Preliminary Laboratory WBC 11.0 X10^3/uL (3.6-10.0) H 10/08/23 00:16 RBC 5.26 X10^6/uL (4.7-6.0) 10/08/23 00:16 Hgb 11.5 g/dL (13.5-18.0) L 10/08/23 00:16 Hct 38.0 % (42.0-54.0) L 10/08/23 00:16 MCV 72.2 fL (80.0-100.0) L 10/08/23 00:16 MCH 21.9 pg (27.0-34.0) L 10/08/23 00:16 MCHC 30.3 g/dL (33.0-35.0) L 10/08/23 00:16 RDW 20.6 % (11.6-16.5) H 10/08/23 00:16 Plt Count 89 X10^3/uL (150.0-450.0) L 10/08/23 15:24 Plt Count Comment Decreased (ADEQUATE) 10/08/23 00:16 MPV 9.3 fL (7.4-11.0) 10/08/23 00:16 Neut % (Auto) 90.2 % (42.0-75.0) H 10/08/23 00:16 Lymph % (Auto) 3.8 % (21.0-51.0) L 10/08/23 00:16 [place] % (Auto) 5.5 % (0.0-13.0) 10/08/23 00:16 Eos % (Auto) 0.1 % (0.9-2.9) L 10/08/23 00:16 Baso % (Auto) 0.4 % (0.2-1.0) 10/08/23 00:16 Neut # (Auto) 9.9 x10^3/uL (2.2-4.8) H 10/08/23 00:16 Lymph # (Auto) 0.4 X10^3/uL (1.3-2.9) L 10/08/23 00:16 [place] # (Auto) 0.6 x10^3/uL (0.3-0.8) 10/08/23 00:16 Eos # (Auto) 0.0 x10^3/uL (0.0-0.2) 10/08/23 00:16 Baso # (Auto) 0.0 X10^3/uL (0.0-0.1) 10/08/23 00:16 Absolute Nucleated RBC 0.7 /100WBC 10/08/23 00:16 Total Counted 100 10/08/23 00:16 Neutrophils % (Manual) 94 % (39-76) H 10/08/23 00:16 Lymphocytes % (Manual) 2 % (13-43) L 10/08/23 00:16 Monocytes % (Manual) 6 % (4-9) 10/08/23 00:16 Plt Morphology Comment Normal (NORMAL) 10/08/23 00:16 RBC Morphology Abnormal (NORMAL) 10/08/23 00:16 Hypochromasia 2+ A 10/08/23 00:16 Anisocytosis 1+ A 10/08/23 00:16 Microcytosis Slight A 10/08/23 00:16 Target Cells Present 10/08/23 00:16 Ovalocytes Present 10/08/23 00:16 [place] Cells Present 10/08/23 00:16 Acanthocytes (Spur) Present 10/08/23 00:16 ESR 11 MM/HOUR (0-15) 10/08/23 15:24 PT 20.9 SECONDS (11.8-14.3) 10/08/23 15:24 INR Target Range - 10/08/23 15:24 INR 1.83 (0.8-1.3) H 10/08/23 15:24 APTT 38.2 SECONDS (22.9-36.5) H 10/08/23 15:24 PTT Comment - 10/08/23 15:24 Sodium 159 mmol/L (136-145) H* 10/08/23 09:06 Corrected Sodium 161 mmol/L (136-145) H 10/08/23 09:06 Potassium 3.7 mmol/L (3.5-5.1) 10/08/23 09:06 Chloride 123 mmol/L (98-107) H* 10/08/23 09:06 Carbon Dioxide 25.2 mmol/L (21-32) 10/08/23 09:06 BUN 65 mg/dL (7-18) H 10/08/23 09:06 Creatinine 2.37 mg/dL (0.70-1.30) H 10/08/23 09:06 Est GFR (MDRD) Af Amer 35 (>60) L 10/08/23 09:06 Est GFR (MDRD) Non-Af 29 (>60) L 10/08/23 09:06 Glucose 181 mg/dL (65-99) H 10/08/23 09:06 Lactic Acid 1.9 mmol/L (0.4-2.0) 10/08/23 02:16 Calcium 7.6 mg/dL (8.5-10.1) L 10/08/23 09:06 Corrected Calcium 9.3 mg/dL (8.5-10.1) 10/08/23 09:06 Magnesium 2.4 mg/dL (2.0-2.9) 10/08/23 05:20 Total Bilirubin 4.20 mg/dL (0.2-1.0) H 10/08/23 09:06 AST 40 Units/L (15-37) H 10/08/23 09:06 ALT 75 Units/L (12-78) 10/08/23 09:06 Alkaline Phosphatase 77 Units/L (46-116) 10/08/23 09:06 Ammonia < 10 umol/L (11-32) L 10/08/23 00:16 Creatine Kinase 147 Units/L (39-308) 10/08/23 05:20 Troponin I High Sens 360.2 ng/L (4.0-60.0) H* 10/08/23 05:20 C-Reactive Protein 100.90 mg/L (0-3.0) H 10/08/23 15:24 B-Natriuretic Peptide 3700 pg/mL (0-79) H 10/08/23 00:16 Total Protein 5.6 g/dL (6.4-8.2) L 10/08/23 09:06 Albumin 1.9 g/dL (3.4-5.0) L 10/08/23 09:06 Globulin 3.7 g/dL (2.5-4.5) 10/08/23 09:06 Albumin/Globulin Ratio 0.5 Ratio (1.1-2.1) L 10/08/23 09:06 Triglycerides 108 mg/dL (0-150) 10/08/23 05:20 Cholesterol 82 mg/dL (0-200) 10/08/23 05:20 LDL Cholesterol, Calc 43 mg/dL (0-100) 10/08/23 05:20 HDL Cholesterol 17 mg/dL (40-60) L 10/08/23 05:20 Cholesterol/HDL Ratio 4.8 (0.0-5.0) 10/08/23 05:20 Amylase 30 Units/L (25-115) 10/08/23 00:16 Specimen Type Catherized urine 10/07/23 23:35 Urine Color Dark yellow (YELLOW) 10/07/23 23:35 Urine Appearance Clear (CLEAR) 10/07/23 23:35 Urine pH 6.0 (5.0 - 8.0) 10/07/23 23:35 Ur Specific [place] 1.020 (1.000-1.030) 10/07/23 23:35 Urine Protein 2+ (NEGATIVE) 10/07/23 23:35 Urine Glucose (UA) Negative (NEGATIVE) 10/07/23 23:35 Urine Ketones Negative (NEGATIVE) 10/07/23 23:35 Urine Blood 1+ (NEGATIVE) 10/07/23 23:35 Urine Nitrite Negative (NEGATIVE) 10/07/23 23:35 Urine Bilirubin 2+ (NEGATIVE) 10/07/23 23:35 Urine Urobilinogen 3+ (NORMAL) 10/07/23 23:35 Ur Leukocyte Esterase 2+ (NEGATIVE) 10/07/23 23:35 Urine RBC 3-5 /HPF (0-3) A 10/07/23 23:35 Urine WBC 5-10 /HPF (0-5) A 10/07/23 23:35 Ur Squamous Epith Cells Rare /HPF (NEGATIVE) 10/07/23 23:35 Urine Bacteria 4+ /HPF (NEGATIVE) 10/07/23 23:35 Urine Mucus Rare /HPF (NEGATIVE) 10/07/23 23:35 Ur Culture Indicated? Yes/culture set up 10/07/23 23:35 Ethyl Alcohol mg/dL < 3 mg/dL (0-19.9) 10/08/23 05:20 SARS-CoV-2 (PCR) Negative (NEGATIVE) 10/08/23 00:30 Influenza Type A (PCR) Negative (NEGATIVE) 10/08/23 00:30 Influenza Type B (PCR) Negative (NEGATIVE) 10/08/23 00:30 RSV (PCR) Negative (NEGATIVE) 10/08/23 00:30 Review of Systems Constitutional: Weakness Eyes: No Symptoms Reported ENT: No Symptoms Reported Respiratory: Shortness of Breath and Wheezing Cardiovascular: Edema Gastrointestinal: Other (POOR PO INTAKE) Genitourinary: No Symptoms Reported Musculoskeletal: Other (MOTOR DEFICIT, MUSCLE WEAKNESS) Skin: denies Bruising Neurological: Weakness and Confusion Physical Exam Vital Signs: Vital Signs Temperature 98.3 F Temperature 97.8 F Pulse Rate 90 Pulse Rate 93 Pulse Rate 100 Pulse Rate 81 Pulse Rate 78 Pulse Rate 77 Pulse Rate 78 Pulse Rate 75 Respiratory Rate 27 Respiratory Rate 20 Respiratory Rate 27 Respiratory Rate 20 Respiratory Rate 35 Respiratory Rate 23 Respiratory Rate 34 Respiratory Rate 22 Respiratory Rate 26 Respiratory Rate 18 Blood Pressure 93/64 Blood Pressure 86/52 Blood Pressure 108/69 Blood Pressure 105/52 Blood Pressure 101/53 Blood Pressure 92/63 Blood Pressure 92/54 Blood Pressure 96/54 O2 Sat by Pulse Oximetry 98 O2 Sat by Pulse Oximetry 100 O2 Sat by Pulse Oximetry 100 O2 Sat by Pulse Oximetry 100 O2 Sat by Pulse Oximetry 100 O2 Sat by Pulse Oximetry 100 O2 Sat by Pulse Oximetry 100 O2 Sat by Pulse Oximetry 98 Oriented: Person Eyes: Normal Ear: Normal Throat: Dry Respiratory: Diminished Throughout Cardiovascular: Tachycardia (105 RATE) and Edema : Other (COLLINS CATHETER IN PLACE) Auscultation: Bowel Sounds: Decreased Palpation: Normal Tenderness: Normal Skin: Decreased Turgur Musculoskeletal: Right, Left, Swelling and Motor Deficit Mood Description: Depressed Affect: Depressed Speech Pattern: Appropriate and Delayed Assessment/Plan (1) Altered mental status: Narrative Support Text: ADMIT, ICU, SUPPLEMENTAL O2 AND CARDIAC MONITORING CT HEAD OBTAINED IN ER, CXR AND VERIFY HOME MEDICATION GENTLE IV HYDRATION WITH COLLINS FOR STRICT I&OS BP CONTROL, LACTIC ACID ON ADMISSION BC ON ADMISSION, IV ATBX THERAPY RESP VIRAL PANEL, SPEECH CONSULT AMMONIA AND ALCOHOL LEVEL OBTAINED ON ADMISSION Status: Acute (2) Acute hypernatremia: Status: Acute (3) Pneumonia: Qualifiers: Laterality: bilateral Lung location: lower lobe of lung Pneumonia type: due to unspecified organism Qualified Code(s): J18.9 - Pneumonia, unspecified organism Status: Acute (4) Acute dehydration: Status: Acute (5) UTI (urinary tract infection): Qualifiers: Hematuria presence: with hematuria Urinary tract infection type: site unspecified Qualified Code(s): N39.0 - Urinary tract infection, site not specified; R31.9 - Hematuria, unspecified Status: Acute (6) COPD (chronic obstructive pulmonary disease): Qualifiers: COPD type: unspecified COPD Qualified Code(s): J44.9 - Chronic obstructive pulmonary disease, unspecified Status: Chronic
[2023-10-08] MEDS ORDERED: NovoLIN R (or HumuLIN R) SC PRN (18:25)
[2023-10-08] MEDS: ROCEPHIN VIAL 1 GRAM 1 G in NS 100 ML IV 100 ML IV SCH (20:18)
[2023-10-08] MEDS: NICOTINE PATCH TD SCH (20:19)
[2023-10-08] MEDS: LIPITOR TAB 80 MG PO SCH (20:19)
[2023-10-09] MEDS: NS 1/2 1,000 ML IV 1,000 ML IV ONE (03:27)
--- NOTE | 2023-10-09 04:23 | EKG ---
Test Reason : ELEVATED TROPONIN Blood Pressure : */* mmHG Vent. Rate : 105 BPM Atrial Rate : * BPM P-R Int : * ms QRS Dur : 130 ms QT Int : 396 ms P-R-T Axes : * -41 115 degrees QTc Int : 523 ms Atrial fibrillation with rapid ventricular response Left axis deviation Left ventricular hypertrophy with QRS widening and repolarization abnormality ( R in aVL , Siddhartha pr oduct ) Cannot rule out Septal infarct , age undetermined Possible Lateral infarct , age undetermined Abnormal ECG When compared with ECG of 08-OCT-2023 16:10, (Unconfirmed) Borderline criteria for Lateral infarct are now present QT has lengthened Confirmed by Santo Carranza MD ([id number]) on 10/09/2023 8:07:54 AM Referred By: Confirmed By: Santo Carranza MD
[2023-10-09 04:57] LABS: BASOPHILS % (AUTO) 0.2 % (0.2-1.0); EOSINOPHILS # (AUTO) 0.1 x10^3/uL (0.0-0.2); LYMPHOCYTES # (AUTO) 0.7 X10^3/uL (1.3-2.9); MONOCYTES # (AUTO) 0.3 x10^3/uL (0.3-0.8); MONOCYTES % (AUTO) 2.6 % (0.0-13.0)
[2023-10-09 05:02] LABS: INR 1.69 (0.8-1.3)
[2023-10-09 05:03] LABS: HEMATOCRIT 32.6 % (42.0-54.0); LYMPHOCYTES % (AUTO) 5.4 % (21.0-51.0); MEAN CORPUSCULAR HGB CONC 30.8 g/dL (33.0-35.0); MEAN CORPUSCULAR VOLUME 71.4 fL (80.0-100.0); MEAN PLATELET VOLUME 9.1 fL (7.4-11.0); NEUTROPHILS # (AUTO) 11.2 x10^3/uL (2.2-4.8); NEUTROPHILS % (AUTO) 90.8 % (42.0-75.0); PLATELET COUNT 78 X10^3/uL (150.0-450.0); RED BLOOD COUNT 4.57 X10^6/uL (4.7-6.0); RED CELL DISTRIBUTION WIDTH 20.6 % (11.6-16.5); WHITE BLOOD COUNT 12.3 X10^3/uL (3.6-10.0)
--- NOTE | 2023-10-09 05:32 | VAS ---
EXAM:CAROTID USHISTORY:PREV STROKE, CAROTID STENOSIS;COMPARISON:NoneTECHNIQUE:Multip le wright scale and color flow Doppler images of the right and left carotid arterial system were obtained. The vertebral arterial system was evaluated as well.FINDINGS:Normal color flow Doppler is seen throughout the right and left carotid arterial system. Peak systolic velocity in the right ICA is 141 cm/s. Peak systolic velocity in the left ICA is 76 cm/s. Mildly elevated velocities in the right ICA.. Scattered atherosclerotic calcifications and plaque bilaterally.The left vertebral artery demonstrates antegrade flow. Nonvisualization of the right vertebral artery.IMPRESSION:Right ICA velocities indicate 50-69% stenosis.Left ICA velocities indicate less than 50% stenosis.THIS IS AN ELECTRONICALLY VERIFIED FINAL REPORT10/09/2023 5:28 AM - Electronically signed by Han Booker MD
[2023-10-09 05:40] LABS: ANISOCYTOSIS 1+; BAND NEUTROPHILS % 1 % (0-10); BURR CELLS PRESENT; HYPOCHROMASIA 2+; MICROCYTOSIS SLIGHT; OVALOCYTES PRESENT; PLATELET MORPHOLOGY COMMENT NORMAL (NORMAL); POIKILOCYTOSIS PRESENT; TARGET CELLS PRESENT
[2023-10-09 05:41] LABS: SCHISTOCYTES PRESENT
[2023-10-09 06:39] LABS: ALANINE AMINOTRANSFERASE 59 Units/L (12-78); ALBUMIN 1.7 g/dL (3.4-5.0); ALKALINE PHOSPHATASE 78 Units/L (46-116); ASPARTATE AMINO TRANSFERASE 28 Units/L (15-37); BLOOD UREA NITROGEN 56 mg/dL (7-18); CARBON DIOXIDE 22.4 mmol/L (21-32); COR CA(FOR HYPOALB) 8.8 mg/dL (8.5-10.1); CREATININE 2.05 mg/dL (0.70-1.30); GLUCOSE 90 mg/dL (65-99); TOTAL PROTEIN 5.1 g/dL (6.4-8.2); eGFR NON BLACK RACES 34 (>60)
[2023-10-09 07:24] LABS: CHLORIDE 112 mmol/L (98-107); SODIUM 145 mmol/L (136-145)
[2023-10-09 07:28] LABS: POTASSIUM 2.5 mmol/L (3.5-5.1)
[2023-10-09] MEDS ORDERED: CONSULT PHARMACY - POTASSIUM & MAGNESIUM XX SCH ×2 (08:00→14:00)
[2023-10-09] MEDS ORDERED: K-DUR TAB 20 MEQ PO SCH (09:00)
[2023-10-09] MEDS ORDERED: D5W 250 ML IV 250 ML IV ONE (09:05)
[2023-10-09] MEDS: ZITHROMAX INJ 500 MG VIAL 500 MG in D5W 250 ML IV 250 ML IV SCH (09:40)
[2023-10-09] MEDS: MICRO K EXTEN CAP 10 MEQ PO SCH (09:45)
--- NOTE | 2023-10-09 10:46 | RAD ---
EXAM:CHEST, 1 VIEWHISTORY:PNEUMONIABEST VIEW POSSIBLE; HTN, DM, COPD, GOUT SX: MARIA ISABEL, TONSILSCOMPARISON:Chest radiograph 10/08/2023FINDINGS:Abnormal opacity in the right lung base is larger. This may be progressed pneumonia.Vague abnormality in the left lung could also be pneumonia but is not significantly changed when accounting for position changes.There may be a small right effusion. No significant left effusion. No pneumothorax.Cardiomegaly is present.The bones are unremarkable.EKG leads are noted. Surgical clips are seen in the neck.IMPRESSION:1. Bilateral pneumonia, progressed on the rightTHIS IS AN ELECTRONICALLY VERIFIED FINAL REPORT10/09/2023 10:43 AM - Electronically signed by Ramirez Caicedo MD
[2023-10-09] MEDS: XOPENEX 1.25 MG/3 ML NEBULE NEB SCH (13:19)
[2023-10-09] MEDS: VISTARIL PO PRN (13:45)
[2023-10-09] MEDS: NORCO 5/325 MG TAB PO PRN (13:47)
[2023-10-09] MEDS: NS 1/2 + KCL 20 MEQ/L 1,000 ML with MAGNESIUM SULFATE 50% INJ VIAL 1 G IV SCH (15:18)
[2023-10-09] MEDS: LASIX IVP SCH (18:29)
[2023-10-09] MEDS: COREG TAB 6.25 MG PO SCH (18:35)
[2023-10-09] MEDS: K-DUR TAB 20 MEQ PO SCH (18:36)
[2023-10-09] MEDS: COREG TAB 6.25 MG ONE (18:41)
--- NOTE | 2023-10-10 04:42 | EKG ---
Test Reason : Elevated Troponin Blood Pressure : */* mmHG Vent. Rate : 77 BPM Atrial Rate : 77 BPM P-R Int : 194 ms QRS Dur : 130 ms QT Int : 434 ms P-R-T Axes : 29 -40 101 degrees QTc Int : 491 ms Sinus rhythm with premature atrial complexes Left axis deviation Left ventricular hypertrophy with QRS widening and repolarization abnormality ( R in aVL , [employer] pr oduct ) Abnormal ECG When compared with ECG of 09-OCT-2023 04:07, Sinus rhythm has replaced Atrial fibrillation Minimal criteria for Septal infarct are no longer present Borderline criteria for Lateral infarct are no longer present ST no longer elevated in Lateral leads Confirmed by Santo Carranza MD ([id number]) on 10/10/2023 7:29:48 AM Referred By: Confirmed By: Santo Carranza MD
[2023-10-10 05:30] LABS: HEMOGLOBIN 10.3 g/dL (13.5-18.0); MEAN CORPUSCULAR HEMOGLOBIN 21.7 pg (27.0-34.0); MONOCYTES # (AUTO) 0.3 x10^3/uL (0.3-0.8)
[2023-10-10 05:35] LABS: BASOPHILS % (AUTO) 0.2 % (0.2-1.0); EOSINOPHILS # (AUTO) 0.2 x10^3/uL (0.0-0.2); EOSINOPHILS % (AUTO) 1.3 % (0.9-2.9); HEMATOCRIT 33.9 % (42.0-54.0); LYMPHOCYTES # (AUTO) 0.6 X10^3/uL (1.3-2.9); LYMPHOCYTES % (AUTO) 5.3 % (21.0-51.0); MEAN CORPUSCULAR HGB CONC 30.3 g/dL (33.0-35.0); MEAN CORPUSCULAR VOLUME 71.6 fL (80.0-100.0); MEAN PLATELET VOLUME 9.6 fL (7.4-11.0); NEUTROPHILS # (AUTO) 10.5 x10^3/uL (2.2-4.8); NEUTROPHILS % (AUTO) 90.2 % (42.0-75.0); PLATELET COUNT 78 X10^3/uL (150.0-450.0); RED BLOOD COUNT 4.73 X10^6/uL (4.7-6.0); RED CELL DISTRIBUTION WIDTH 21.2 % (11.6-16.5); WHITE BLOOD COUNT 11.6 X10^3/uL (3.6-10.0)
[2023-10-10 05:44] LABS: ALANINE AMINOTRANSFERASE 56 Units/L (12-78); ALBUMIN 1.8 g/dL (3.4-5.0); ALKALINE PHOSPHATASE 97 Units/L (46-116); ASPARTATE AMINO TRANSFERASE 32 Units/L (15-37); BLOOD UREA NITROGEN 49 mg/dL (7-18); CALCIUM 6.9 mg/dL (8.5-10.1); CARBON DIOXIDE 21.2 mmol/L (21-32); CHLORIDE 108 mmol/L (98-107); COR CA(FOR HYPOALB) 8.7 mg/dL (8.5-10.1); CREATININE 1.88 mg/dL (0.70-1.30); GLUCOSE 85 mg/dL (65-99); MAGNESIUM 1.8 mg/dL (2.0-2.9); SODIUM 140 mmol/L (136-145); TOTAL PROTEIN 5.7 g/dL (6.4-8.2); eGFR NON BLACK RACES 38 (>60)
[2023-10-10 06:04] LABS: METAMYELOCYTES % 2; PLATELET MORPHOLOGY COMMENT NORMAL (NORMAL)
[2023-10-10 06:05] LABS: ANISOCYTOSIS 1+; HYPOCHROMASIA 2+; MICROCYTOSIS SLIGHT; POIKILOCYTOSIS PRESENT
[2023-10-10 06:13] LABS: BURR CELLS PRESENT; OVALOCYTES PRESENT; TARGET CELLS PRESENT
[2023-10-10 06:14] LABS: SCHISTOCYTES PRESENT
[2023-10-10] MEDS ORDERED: CONSULT PHARMACY - POTASSIUM & MAGNESIUM XX SCH (07:00)
[2023-10-10] MEDS: MICRO K EXTEN CAP 10 MEQ PO ONE (08:43)
[2023-10-10] MEDS: MAG-OX TAB PO ONE (08:43)
[2023-10-10] MEDS: HEPARIN SODIUM INJ 5000 UNITS IVP NR (10:05)
[2023-10-10] MEDS ORDERED: K-DUR TAB 20 MEQ PO ONE (11:00)
--- NOTE | 2023-10-10 16:50 | PCM.PROG ---
Progress Note Progress Note for Day of Date of Exam: 10/09/23 Subjective Subjective: PT IS 68 WM, ER ADMISSION FOR ALTERED MENTAL STATUS. CT HEAD IN ER ABNORMAL, INFARCT WITH AGE UNDETERMINED, SMALL VESSEL DISEASE. INITIAL CHEST XRAY SHOWED MILD CARDIOMEGALY, PATCHY BIBASILAR INFILATRATES [id number] RIGHT. PT FAMILY STATES PT HAS NOT SEEN DR IN MONTHS, HAS NOT BEEN TAKING ANY PRESCRIPTION MEDICATION FOR SEVERAL MONTHS. HE REPORTS A PREVIOUS CARDIAC/CAROTID STENT IN [place]. PT WAS HYPOTENSIVE ON ARRIVAL WITH NA CRITICAL AT 164. HE IS ON IV ANTIBIOTICS. AM LABS SHOWED HGB 10.0, PLT 78, K 2.5, WBC 12.3, BUN 53/CREAT 2.05, BILIRUBIN 5.3, AMMONIA <10, ALCOHOL LEVEL <3, ELEVATED TROPONIN 365.7, BNP 3700. BILATERAL VENOUS DOPPLERS WERE OBTAINED AND REVEALED COMPLETE DVT OF THE LEFT PERONEAL VEIN AND RIGHT POLITEAL VEIN. PATIENT PLACED ON HEPARIN DRIP. HE IS PENDING BLOOD/URINE CULTURES. REPEAT CHEST XRAY TODAY SHOWED BILATERAL PNEUMONIA, PROGRESSED ON THE RIGHT. EKG SHOW AFIB WITH RVR. PATIENT DENIES PRIOR HISTORY OF AFIB. HE IS ON HEPARIN DRIP. ECHO OBTAINED HAD EF <20%.BLOOD PRESSURE 107/52 THIS MORNING, HYPOTENSIVE EPISODES THRU THE NIGHT. URINE CULTURES BACK AND POSITVE FOR ECOLI. HE IS ON ROCEPHIN. Past Medical Family Social History Allergies: Allergies promethazine [From Phenergan] Allergy (Verified 10/08/23 05:08) shrimp Allergy (Verified 10/08/23 05:08) Vital Signs and I&O's Vital Signs: Vital Signs Temperature 97.6 F Temperature 97.6 F Pulse Rate 75 Pulse Rate 80 Pulse Rate 74 Pulse Rate 79 Pulse Rate 79 Pulse Rate 80 Pulse Rate 83 Pulse Rate 81 Pulse Rate 82 Pulse Rate 81 Pulse Rate 85 Pulse Rate 79 Pulse Rate 75 Pulse Rate 75 Pulse Rate 81 Pulse Rate 83 Pulse Rate 81 Pulse Rate 84 Pulse Rate 77 Pulse Rate 74 Pulse Rate 69 Respiratory Rate 22 Respiratory Rate 19 Respiratory Rate 23 Respiratory Rate 20 Respiratory Rate 29 Respiratory Rate 30 Respiratory Rate 19 Respiratory Rate 19 Respiratory Rate 26 Respiratory Rate 21 Respiratory Rate 20 Respiratory Rate 23 Respiratory Rate 20 Respiratory Rate 18 Respiratory Rate 28 Respiratory Rate 20 Respiratory Rate 28 Respiratory Rate 14 Respiratory Rate 22 Respiratory Rate 20 Respiratory Rate 17 Respiratory Rate 10 Blood Pressure 89/54 Blood Pressure 91/51 Blood Pressure 82/51 Blood Pressure 80/51 Blood Pressure 82/49 Blood Pressure 83/52 Blood Pressure 110/56 Blood Pressure 89/62 Blood Pressure 82/58 Blood Pressure 97/56 Blood Pressure 94/60 Blood Pressure 95/52 O2 Sat by Pulse Oximetry 99 O2 Sat by Pulse Oximetry 96 O2 Sat by Pulse Oximetry 98 O2 Sat by Pulse Oximetry 100 O2 Sat by Pulse Oximetry 100 O2 Sat by Pulse Oximetry 92 O2 Sat by Pulse Oximetry 88 O2 Sat by Pulse Oximetry 99 O2 Sat by Pulse Oximetry 95 O2 Sat by Pulse Oximetry 99 O2 Sat by Pulse Oximetry 97 O2 Sat by Pulse Oximetry 92 O2 Sat by Pulse Oximetry 100 O2 Sat by Pulse Oximetry 97 O2 Sat by Pulse Oximetry 93 O2 Sat by Pulse Oximetry 100 O2 Sat by Pulse Oximetry 100 O2 Sat by Pulse Oximetry 95 O2 Sat by Pulse Oximetry 98 O2 Sat by Pulse Oximetry 100 O2 Sat by Pulse Oximetry 100 Intake and Output: Intake & Output 10/08/23 10/09/23 10/10/23 10/11/23 11:59 11:59 11:59 11:59 Intake Total 315 / 315 3559 / 3559 3642 / 3642 Output Total 1250 / 1250 450 / 450 1400 / 1400 Balance -935 / -935 3109 / 3109 2242 / 2242 Physical Exam Oriented: Person Eyes: Normal Ear: Normal Throat: Dry Respiratory: Diminished Cardiovascular: Tachycardia (105 RATE) and Edema : Other (COLLINS CATHETER IN PLACE) Auscultation: Bowel Sounds: Decreased Tenderness: Normal Skin: Decreased Turgur Musculoskeletal: Right, Left, Swelling and Motor Deficit Mood Description: Depressed Affect: Depressed Speech Pattern: Clear and Appropriate Laboratory and Diagnostics 10/10/23 04:06 10/10/23 04:06 Labs: 10/07/23 23:35 Urine,Catheterized Urine Culture - Final Escherichia Coli Laboratory WBC 11.6 X10^3/uL (3.6-10.0) H 10/10/23 04:06 RBC 4.73 X10^6/uL (4.7-6.0) 10/10/23 04:06 Hgb 10.3 g/dL (13.5-18.0) L 10/10/23 04:06 Hct 33.9 % (42.0-54.0) L 10/10/23 04:06 MCV 71.6 fL (80.0-100.0) L 10/10/23 04:06 MCH 21.7 pg (27.0-34.0) L 10/10/23 04:06 MCHC 30.3 g/dL (33.0-35.0) L 10/10/23 04:06 RDW 21.2 % (11.6-16.5) H 10/10/23 04:06 Plt Count 78 X10^3/uL (150.0-450.0) L 10/10/23 04:06 Plt Count Comment Decreased (ADEQUATE) 10/10/23 04:06 MPV 9.6 fL (7.4-11.0) 10/10/23 04:06 Neut % (Auto) 90.2 % (42.0-75.0) H 10/10/23 04:06 Lymph % (Auto) 5.3 % (21.0-51.0) L 10/10/23 04:06 [place] % (Auto) 3.0 % (0.0-13.0) 10/10/23 04:06 Eos % (Auto) 1.3 % (0.9-2.9) 10/10/23 04:06 Baso % (Auto) 0.2 % (0.2-1.0) 10/10/23 04:06 Neut # (Auto) 10.5 x10^3/uL (2.2-4.8) H 10/10/23 04:06 Lymph # (Auto) 0.6 X10^3/uL (1.3-2.9) L 10/10/23 04:06 [place] # (Auto) 0.3 x10^3/uL (0.3-0.8) 10/10/23 04:06 Eos # (Auto) 0.2 x10^3/uL (0.0-0.2) 10/10/23 04:06 Baso # (Auto) 0.0 X10^3/uL (0.0-0.1) 10/10/23 04:06 Absolute Nucleated RBC 0.9 /100WBC 10/10/23 04:06 Total Counted 100 10/10/23 04:06 Neutrophils % (Manual) 3 % (39-76) L 10/10/23 04:06 Band Neutrophils % 2 % (0-10) 10/10/23 04:06 Lymphocytes % (Manual) 2 % (13-43) L 10/10/23 04:06 Monocytes % (Manual) 1 % (4-9) L 10/10/23 04:06 Metamyelocytes % 2 10/10/23 04:06 Nucleated RBCs 3 10/09/23 04:00 Plt Morphology Comment Normal (NORMAL) 10/10/23 04:06 RBC Morphology Abnormal (NORMAL) 10/10/23 04:06 Hypochromasia 2+ A 10/10/23 04:06 Poikilocytosis Present 10/10/23 04:06 Anisocytosis 1+ A 10/10/23 04:06 Microcytosis Slight A 10/10/23 04:06 Target Cells Present 10/10/23 04:06 Ovalocytes Present 10/10/23 04:06 Rosie Cells Present 10/10/23 04:06 Acanthocytes (Spur) Present 10/10/23 04:06 Schistocytes Present 10/10/23 04:06 ESR 11 MM/HOUR (0-15) 10/08/23 15:24 PT 19.6 SECONDS (11.8-14.3) 10/09/23 04:00 INR Target Range - 10/09/23 04:00 INR 1.69 (0.8-1.3) H 10/09/23 04:00 APTT 37.5 SECONDS (22.9-36.5) H 10/10/23 08:40 PTT Comment - 10/10/23 08:40 Sodium 140 mmol/L (136-145) 10/10/23 04:06 Corrected Sodium TNP 10/10/23 04:06 Potassium 3.0 mmol/L (3.5-5.1) L 10/10/23 04:06 Chloride 108 mmol/L (98-107) H 10/10/23 04:06 Carbon Dioxide 21.2 mmol/L (21-32) 10/10/23 04:06 BUN 49 mg/dL (7-18) H 10/10/23 04:06 Creatinine 1.88 mg/dL (0.70-1.30) H 10/10/23 04:06 Est GFR (MDRD) Af Amer 46 (>60) L 10/10/23 04:06 Est GFR (MDRD) Non-Af 38 (>60) L 10/10/23 04:06 Glucose 85 mg/dL (65-99) 10/10/23 04:06 POC Glucose (mg/dL) 157 mg/dL (65-99) H 10/10/23 11:08 Lactic Acid 1.9 mmol/L (0.4-2.0) 10/08/23 02:16 Uric Acid 13.7 mg/dL (3.5-7.2) H 10/08/23 15:24 Calcium 6.9 mg/dL (8.5-10.1) L 10/10/23 04:06 Corrected Calcium 8.7 mg/dL (8.5-10.1) 10/10/23 04:06 Magnesium 1.8 mg/dL (2.0-2.9) L 10/10/23 04:06 Total Bilirubin 2.10 mg/dL (0.2-1.0) H 10/10/23 04:06 AST 32 Units/L (15-37) 10/10/23 04:06 ALT 56 Units/L (12-78) 10/10/23 04:06 Alkaline Phosphatase 97 Units/L (46-116) 10/10/23 04:06 Ammonia < 10 umol/L (11-32) L 10/08/23 00:16 Creatine Kinase 147 Units/L (39-308) 10/08/23 05:20 Troponin I High Sens 360.2 ng/L (4.0-60.0) H* 10/08/23 05:20 C-Reactive Protein 100.90 mg/L (0-3.0) H 10/08/23 15:24 B-Natriuretic Peptide 3700 pg/mL (0-79) H 10/08/23 00:16 Total Protein 5.7 g/dL (6.4-8.2) L 10/10/23 04:06 Albumin 1.8 g/dL (3.4-5.0) L 10/10/23 04:06 Globulin 3.9 g/dL (2.5-4.5) 10/10/23 04:06 Albumin/Globulin Ratio 0.5 Ratio (1.1-2.1) L 10/10/23 04:06 Triglycerides 108 mg/dL (0-150) 10/08/23 05:20 Cholesterol 82 mg/dL (0-200) 10/08/23 05:20 LDL Cholesterol, Calc 43 mg/dL (0-100) 10/08/23 05:20 HDL Cholesterol 17 mg/dL (40-60) L 10/08/23 05:20 Cholesterol/HDL Ratio 4.8 (0.0-5.0) 10/08/23 05:20 Amylase 30 Units/L (25-115) 10/08/23 00:16 Specimen Type Catherized urine 10/07/23 23:35 Urine Color Dark yellow (YELLOW) 10/07/23 23:35 Urine Appearance Clear (CLEAR) 10/07/23 23:35 Urine pH 6.0 (5.0 - 8.0) 10/07/23 23:35 Ur Specific [place] 1.020 (1.000-1.030) 10/07/23 23:35 Urine Protein 2+ (NEGATIVE) 10/07/23 23:35 Urine Glucose (UA) Negative (NEGATIVE) 10/07/23 23:35 Urine Ketones Negative (NEGATIVE) 10/07/23 23:35 Urine Blood 1+ (NEGATIVE) 10/07/23 23:35 Urine Nitrite Negative (NEGATIVE) 10/07/23 23:35 Urine Bilirubin 2+ (NEGATIVE) 10/07/23 23:35 Urine Urobilinogen 3+ (NORMAL) 10/07/23 23:35 Ur Leukocyte Esterase 2+ (NEGATIVE) 10/07/23 23:35 Urine RBC 3-5 /HPF (0-3) A 10/07/23 23:35 Urine WBC 5-10 /HPF (0-5) A 10/07/23 23:35 Ur Squamous Epith Cells Rare /HPF (NEGATIVE) 10/07/23 23:35 Urine Bacteria 4+ /HPF (NEGATIVE) 10/07/23 23:35 Urine Mucus Rare /HPF (NEGATIVE) 10/07/23 23:35 Ur Culture Indicated? Yes/culture set up 10/07/23 23:35 Ethyl Alcohol mg/dL < 3 mg/dL (0-19.9) 10/08/23 05:20 SARS-CoV-2 (PCR) Negative (NEGATIVE) 10/08/23 00:30 Influenza Type A (PCR) Negative (NEGATIVE) 10/08/23 00:30 Influenza Type B (PCR) Negative (NEGATIVE) 10/08/23 00:30 RSV (PCR) Negative (NEGATIVE) 10/08/23 00:30 Resp Viral Panel (PCR) See scanned report 10/08/23 05:00 Plan (1) Altered mental status: Status: Acute Narrative Support Text: START POTASSIUM REPLACEMENT/IV HYDRATION WITH COLLINS FOR STRICT I&OS, START COREG, OBTAIN ECHO. CONTINUE RESPIRATORY THERAPY AND SUPPLEMENTAL O2 PRN, CARDIAC MONITORING, BP CONTROL, IV ATBX THERAPY, HEPARIN DRIP. PLAN FOR REPEAT AM LABS (2) Pneumonia: Status: Acute Qualifiers: Laterality: bilateral Lung location: lower lobe of lung Pneumonia type : due to unspecified organism Qualified Code(s): J18.9 - Pneumonia, unspecified organism (3) Acute dehydration: Status: Acute (4) UTI (urinary tract infection): Status: Acute Qualifiers: Hematuria presence: with hematuria Urinary tract infection type: site unspecified Qualified Code(s): N39.0 - Urinary tract infection, site not specified; R31.9 - Hematuria, unspecified (5) COPD (chronic obstructive pulmonary disease): Status: Chronic Qualifiers: COPD type: unspecified COPD Qualified Code(s): J44.9 - Chronic obstructive pulmonary disease, unspecified
--- NOTE | 2023-10-10 16:51 | PCM.PROG ---
Progress Note Progress Note for Day of Date of Exam: 10/10/23 Subjective Subjective: PT IS 68 WM, ER ADMISSION FOR ALTERED MENTAL STATUS. CT HEAD IN ER ABNORMAL, INFARCT WITH AGE UNDETERMINED, SMALL VESSEL DISEASE. INITIAL CHEST XRAY SHOWED MILD CARDIOMEGALY, PATCHY BIBASILAR INFILATRATES [id number] RIGHT. PT FAMILY STATES PT HAS NOT SEEN DR IN MONTHS, HAS NOT BEEN TAKING ANY PRESCRIPTION MEDICATION FOR SEVERAL MONTHS. HE REPORTS A PREVIOUS CARDIAC/CAROTID STENT IN [place]. PT WAS HYPOTENSIVE ON ARRIVAL WITH NA CRITICAL AT 164. HE IS ON IV ANTIBIOTICS. AM LABS SHOWED HGB 10.3 PLT 78, K 3.0, WBC 11.6, BUN 49/CREAT 1.88, BILIRUBIN DOWN TO 2.10. HE CONTINUES ON HEPARIN DRIP FOR COMPLETE DVT OF THE LEFT PERONEAL VEIN AND RIGHT POLITEAL VEIN. HE IS PENDING BLOOD CULTURES. URINE CULTURES BACK AND POSITIVE FOR ECOLI- ON ROCEPHIN. HE HAS BILATERAL PNEUMONIA AND CONTINUES ON IV ANTIBIOTICS. PREVIOUS EKG SHOWED AFIB WITH RVR. COREG WAS ADDED AND REPEAT EKG TODAY SHOWED NORMAL SINUS RHYTHM. ECHO OBTAINED EF <20%.BLOOD PRESSURE 95/52 THIS MORNING, 02 SAT 98 ON 2L NC. Past Medical Family Social History Allergies: Allergies promethazine [From Phenergan] Allergy (Verified 10/08/23 05:08) shrimp Allergy (Verified 10/08/23 05:08) Vital Signs and I&O's Vital Signs: Vital Signs Temperature 97.6 F Temperature 97.6 F Pulse Rate 75 Pulse Rate 80 Pulse Rate 74 Pulse Rate 79 Pulse Rate 79 Pulse Rate 80 Pulse Rate 83 Pulse Rate 81 Pulse Rate 82 Pulse Rate 81 Pulse Rate 85 Pulse Rate 79 Pulse Rate 75 Pulse Rate 75 Pulse Rate 81 Pulse Rate 83 Pulse Rate 81 Pulse Rate 84 Pulse Rate 77 Respiratory Rate 22 Respiratory Rate 19 Respiratory Rate 23 Respiratory Rate 20 Respiratory Rate 29 Respiratory Rate 30 Respiratory Rate 19 Respiratory Rate 19 Respiratory Rate 26 Respiratory Rate 21 Respiratory Rate 20 Respiratory Rate 23 Respiratory Rate 20 Respiratory Rate 18 Respiratory Rate 28 Respiratory Rate 20 Respiratory Rate 28 Respiratory Rate 14 Respiratory Rate 22 Respiratory Rate 20 Blood Pressure 89/54 Blood Pressure 91/51 Blood Pressure 82/51 Blood Pressure 80/51 Blood Pressure 82/49 Blood Pressure 83/52 Blood Pressure 110/56 Blood Pressure 89/62 Blood Pressure 82/58 Blood Pressure 97/56 Blood Pressure 94/60 O2 Sat by Pulse Oximetry 99 O2 Sat by Pulse Oximetry 96 O2 Sat by Pulse Oximetry 98 O2 Sat by Pulse Oximetry 100 O2 Sat by Pulse Oximetry 100 O2 Sat by Pulse Oximetry 92 O2 Sat by Pulse Oximetry 88 O2 Sat by Pulse Oximetry 99 O2 Sat by Pulse Oximetry 95 O2 Sat by Pulse Oximetry 99 O2 Sat by Pulse Oximetry 97 O2 Sat by Pulse Oximetry 92 O2 Sat by Pulse Oximetry 100 O2 Sat by Pulse Oximetry 97 O2 Sat by Pulse Oximetry 93 O2 Sat by Pulse Oximetry 100 O2 Sat by Pulse Oximetry 100 O2 Sat by Pulse Oximetry 95 O2 Sat by Pulse Oximetry 98 Intake and Output: Intake & Output 10/08/23 10/09/23 10/10/23 10/11/23 11:59 11:59 11:59 11:59 Intake Total 315 / 315 3559 / 3559 3642 / 3642 200 / 200 Output Total 1250 / 1250 450 / 450 1400 / 1400 Balance -935 / -935 3109 / 3109 2242 / 2242 200 / 200 Physical Exam Oriented: Person Eyes: Normal Ear: Normal Throat: Dry Respiratory: Diminished Cardiovascular: Tachycardia (105 RATE) and Edema : Other (COLLINS CATHETER IN PLACE) Auscultation: Bowel Sounds: Decreased Tenderness: Normal Skin: Decreased Turgur Musculoskeletal: Right, Left, Swelling and Motor Deficit Mood Description: Depressed Affect: Depressed Speech Pattern: Clear and Appropriate Laboratory and Diagnostics 10/10/23 04:06 10/10/23 04:06 Labs: 10/07/23 23:35 Urine,Catheterized Urine Culture - Final Escherichia Coli Laboratory WBC 11.6 X10^3/uL (3.6-10.0) H 10/10/23 04:06 RBC 4.73 X10^6/uL (4.7-6.0) 10/10/23 04:06 Hgb 10.3 g/dL (13.5-18.0) L 10/10/23 04:06 Hct 33.9 % (42.0-54.0) L 10/10/23 04:06 MCV 71.6 fL (80.0-100.0) L 10/10/23 04:06 MCH 21.7 pg (27.0-34.0) L 10/10/23 04:06 MCHC 30.3 g/dL (33.0-35.0) L 10/10/23 04:06 RDW 21.2 % (11.6-16.5) H 10/10/23 04:06 Plt Count 78 X10^3/uL (150.0-450.0) L 10/10/23 04:06 Plt Count Comment Decreased (ADEQUATE) 10/10/23 04:06 MPV 9.6 fL (7.4-11.0) 10/10/23 04:06 Neut % (Auto) 90.2 % (42.0-75.0) H 10/10/23 04:06 Lymph % (Auto) 5.3 % (21.0-51.0) L 10/10/23 04:06 [place] % (Auto) 3.0 % (0.0-13.0) 10/10/23 04:06 Eos % (Auto) 1.3 % (0.9-2.9) 10/10/23 04:06 Baso % (Auto) 0.2 % (0.2-1.0) 10/10/23 04:06 Neut # (Auto) 10.5 x10^3/uL (2.2-4.8) H 10/10/23 04:06 Lymph # (Auto) 0.6 X10^3/uL (1.3-2.9) L 10/10/23 04:06 [place] # (Auto) 0.3 x10^3/uL (0.3-0.8) 10/10/23 04:06 Eos # (Auto) 0.2 x10^3/uL (0.0-0.2) 10/10/23 04:06 Baso # (Auto) 0.0 X10^3/uL (0.0-0.1) 10/10/23 04:06 Absolute Nucleated RBC 0.9 /100WBC 10/10/23 04:06 Total Counted 100 10/10/23 04:06 Neutrophils % (Manual) 3 % (39-76) L 10/10/23 04:06 Band Neutrophils % 2 % (0-10) 10/10/23 04:06 Lymphocytes % (Manual) 2 % (13-43) L 10/10/23 04:06 Monocytes % (Manual) 1 % (4-9) L 10/10/23 04:06 Metamyelocytes % 2 10/10/23 04:06 Nucleated RBCs 3 10/09/23 04:00 Plt Morphology Comment Normal (NORMAL) 10/10/23 04:06 RBC Morphology Abnormal (NORMAL) 10/10/23 04:06 Hypochromasia 2+ A 10/10/23 04:06 Poikilocytosis Present 10/10/23 04:06 Anisocytosis 1+ A 10/10/23 04:06 Microcytosis Slight A 10/10/23 04:06 Target Cells Present 10/10/23 04:06 Ovalocytes Present 10/10/23 04:06 Rosie Cells Present 10/10/23 04:06 Acanthocytes (Spur) Present 10/10/23 04:06 Schistocytes Present 10/10/23 04:06 ESR 11 MM/HOUR (0-15) 10/08/23 15:24 PT 19.6 SECONDS (11.8-14.3) 10/09/23 04:00 INR Target Range - 10/09/23 04:00 INR 1.69 (0.8-1.3) H 10/09/23 04:00 APTT 37.5 SECONDS (22.9-36.5) H 10/10/23 08:40 PTT Comment - 10/10/23 08:40 Sodium 140 mmol/L (136-145) 10/10/23 04:06 Corrected Sodium TNP 10/10/23 04:06 Potassium 3.0 mmol/L (3.5-5.1) L 10/10/23 04:06 Chloride 108 mmol/L (98-107) H 10/10/23 04:06 Carbon Dioxide 21.2 mmol/L (21-32) 10/10/23 04:06 BUN 49 mg/dL (7-18) H 10/10/23 04:06 Creatinine 1.88 mg/dL (0.70-1.30) H 10/10/23 04:06 Est GFR (MDRD) Af Amer 46 (>60) L 10/10/23 04:06 Est GFR (MDRD) Non-Af 38 (>60) L 10/10/23 04:06 Glucose 85 mg/dL (65-99) 10/10/23 04:06 POC Glucose (mg/dL) 157 mg/dL (65-99) H 10/10/23 11:08 Lactic Acid 1.9 mmol/L (0.4-2.0) 10/08/23 02:16 Uric Acid 13.7 mg/dL (3.5-7.2) H 10/08/23 15:24 Calcium 6.9 mg/dL (8.5-10.1) L 10/10/23 04:06 Corrected Calcium 8.7 mg/dL (8.5-10.1) 10/10/23 04:06 Magnesium 1.8 mg/dL (2.0-2.9) L 10/10/23 04:06 Total Bilirubin 2.10 mg/dL (0.2-1.0) H 10/10/23 04:06 AST 32 Units/L (15-37) 10/10/23 04:06 ALT 56 Units/L (12-78) 10/10/23 04:06 Alkaline Phosphatase 97 Units/L (46-116) 10/10/23 04:06 Ammonia < 10 umol/L (11-32) L 10/08/23 00:16 Creatine Kinase 147 Units/L (39-308) 10/08/23 05:20 Troponin I High Sens 360.2 ng/L (4.0-60.0) H* 10/08/23 05:20 C-Reactive Protein 100.90 mg/L (0-3.0) H 10/08/23 15:24 B-Natriuretic Peptide 3700 pg/mL (0-79) H 10/08/23 00:16 Total Protein 5.7 g/dL (6.4-8.2) L 10/10/23 04:06 Albumin 1.8 g/dL (3.4-5.0) L 10/10/23 04:06 Globulin 3.9 g/dL (2.5-4.5) 10/10/23 04:06 Albumin/Globulin Ratio 0.5 Ratio (1.1-2.1) L 10/10/23 04:06 Triglycerides 108 mg/dL (0-150) 10/08/23 05:20 Cholesterol 82 mg/dL (0-200) 10/08/23 05:20 LDL Cholesterol, Calc 43 mg/dL (0-100) 10/08/23 05:20 HDL Cholesterol 17 mg/dL (40-60) L 10/08/23 05:20 Cholesterol/HDL Ratio 4.8 (0.0-5.0) 10/08/23 05:20 Amylase 30 Units/L (25-115) 10/08/23 00:16 Specimen Type Catherized urine 10/07/23 23:35 Urine Color Dark yellow (YELLOW) 10/07/23 23:35 Urine Appearance Clear (CLEAR) 10/07/23 23:35 Urine pH 6.0 (5.0 - 8.0) 10/07/23 23:35 Ur Specific [place] 1.020 (1.000-1.030) 10/07/23 23:35 Urine Protein 2+ (NEGATIVE) 10/07/23 23:35 Urine Glucose (UA) Negative (NEGATIVE) 10/07/23 23:35 Urine Ketones Negative (NEGATIVE) 10/07/23 23:35 Urine Blood 1+ (NEGATIVE) 10/07/23 23:35 Urine Nitrite Negative (NEGATIVE) 10/07/23 23:35 Urine Bilirubin 2+ (NEGATIVE) 10/07/23 23:35 Urine Urobilinogen 3+ (NORMAL) 10/07/23 23:35 Ur Leukocyte Esterase 2+ (NEGATIVE) 10/07/23 23:35 Urine RBC 3-5 /HPF (0-3) A 10/07/23 23:35 Urine WBC 5-10 /HPF (0-5) A 10/07/23 23:35 Ur Squamous Epith Cells Rare /HPF (NEGATIVE) 10/07/23 23:35 Urine Bacteria 4+ /HPF (NEGATIVE) 10/07/23 23:35 Urine Mucus Rare /HPF (NEGATIVE) 10/07/23 23:35 Ur Culture Indicated? Yes/culture set up 10/07/23 23:35 Ethyl Alcohol mg/dL < 3 mg/dL (0-19.9) 10/08/23 05:20 SARS-CoV-2 (PCR) Negative (NEGATIVE) 10/08/23 00:30 Influenza Type A (PCR) Negative (NEGATIVE) 10/08/23 00:30 Influenza Type B (PCR) Negative (NEGATIVE) 10/08/23 00:30 RSV (PCR) Negative (NEGATIVE) 10/08/23 00:30 Resp Viral Panel (PCR) See scanned report 10/08/23 05:00 Plan (1) Altered mental status: Status: Acute Narrative Support Text: CONTINUE RESPIRATORY THERAPY AND SUPPLEMENTAL O2 PRN, CARDIAC MONITORING, BP CONTROL, IV ATBX THERAPY, HEPARIN DRIP. PLAN FOR REPEAT AM LABS (2) Pneumonia: Status: Acute Qualifiers: Laterality: bilateral Lung location: lower lobe of lung Pneumonia type: due to unspecified organism Qualified Code(s): J18.9 - Pneumonia, unspecified organism (3) Acute dehydration: Status: Acute (4) UTI (urinary tract infection): Status: Acute Qualifiers: Hematuria presence: with hematuria Urinary tract infection type: site unspecified Qualified Code(s): N39.0 - Urinary tract infection, site not specified; R31.9 - Hematuria, unspecified (5) COPD (chronic obstructive pulmonary disease): Status: Chronic Qualifiers: COPD type: unspecified COPD Qualified Code(s): J44.9 - Chronic obstructive pulmonary disease, unspecified
[2023-10-10] MEDS ORDERED: COREG TAB 3.125 MG PO SCH (21:00)
[2023-10-10 21:06] VITALS: TEMP 98.1
[2023-10-10 22:34] VITALS: BP 83/52; PULSE 76; RESP 18; O2SAT 100
[2023-10-11 06:13] LABS: ANTI-NUCLEAR ANTIBODY TEST Detected (None Detected)
[2023-10-11 07:13] LABS: BAND NEUTROPHILS % 3 % (0-10)
== END 2023-10-10 22:30 | disposition short-term general hospital (02) | DRG 193 ==
LOC: SUPCPDRO → ER 23:03 → ICU 10-08 03:51
PROVIDERS: ADMIT Internal Medicine; ATTEND Internal Medicine
DX: B96.29 Other Escherichia coli [E. coli] as the cause of diseases classified elsewhere; I11.0 Hypertensive heart disease with heart failure; E86.0 Dehydration; E11.65 Type 2 diabetes mellitus with hyperglycemia; J44.9 Chronic obstructive pulmonary disease, unspecified; I50.43 Acute on chronic combined systolic (congestive) and diastolic (congestive) heart failure; I48.91 Unspecified atrial fibrillation; R79.1 Abnormal coagulation profile; I82.452 Acute embolism and thrombosis of left peroneal vein; R60.0 Localized edema; I82.431 Acute embolism and thrombosis of right popliteal vein; E87.6 Hypokalemia; R77.8 Other specified abnormalities of plasma proteins; J18.8 Other pneumonia, unspecified organism; Z66 Do not resuscitate; E87.0 Hyperosmolality and hypernatremia; L89.892 Pressure ulcer of other site, stage 2; N39.0 Urinary tract infection, site not specified; R41.82 Altered mental status, unspecified; Z20.822 Contact with and (suspected) exposure to COVID-19; I95.89 Other hypotension; R31.9 Hematuria, unspecified; R06.02 Shortness of breath